=== PATIENT | male | born 1945 | race Hispanic/Latino ===

== ENCOUNTER 2017-08-29 15:56 | Inpatient (IN) | payer OTHER, MEDICARE ==
[~2017-08-29] VITALS: Ht 162.6 cm; Wt 73.1 kg
[2017-08-29] VITALS (10 sets, daily range): BP systolic 109–133; BP diastolic 51–83
[2017-08-29] MEDS ORDERED: METOPROLOL TARTRATE 1 MG/ML 5ML VIAL IV ONE (16:05)
[2017-08-29] MEDS ORDERED: FUROSEMIDE 10 MG/ML 2ML VIAL ONE (16:10)
[2017-08-29] MEDS ORDERED: MORPHINE SULFATE 4 MG/1ML SYG ONE (16:10)
[2017-08-29] MEDS ORDERED: ONDANSETRON HCL MDV 20ML 2 MG/ML VIAL ONE (16:11)
[2017-08-29 16:12] LABS: BASOPHILS % (AUTO) 0.7 % (0.0-5.0); EOSINOPHILS % (AUTO) 1.4 % (0.0-8.0); HEMATOCRIT 38.2 % (42-54); LYMPHOCYTES % (AUTO) 15.3 % (21.0-51.0); MEAN CORPUSCULAR HEMOGLOBIN 29.3 pg (27.0-33.0); MEAN CORPUSCULAR HGB CONC 34.3 g/dL (32.0-36.0); MEAN CORPUSCULAR VOLUME 85.6 fL (79-99); MONOCYTES % (AUTO) 7.1 % (3.0-13.0); NEUTROPHILS % (AUTO) 75.5 % (40.0-77.0); PLATELET COUNT (AUTO) 257 K/uL (130-400); RED BLOOD CELL COUNT(AUTO) 4.47 MIL/uL (4.50-6.20); RED CELL DISTRIBUTION WIDTH 13.9 % (11.0-15.5); WHITE BLOOD COUNT (AUTO) 12.3 K/uL (4.8-10.8)
[2017-08-29] MEDS ORDERED: NITROGLYCERIN 50 MG/D5% WATER 1 BOT ONE (16:14)
[2017-08-29 16:22] LABS: CREATININE 1.2 mg/dL (0.5-1.5); POTASSIUM 4.1 mmol/L (3.5-5.1)
[2017-08-29 16:23] LABS: INR 1.01 (0.85-1.15); PARTIAL THROMBOPLASTIN TIME 27.5 SEC (26.3-35.5); PROTHROMBIN TIME 10.6 SEC (9.6-11.6)
[2017-08-29 16:35] LABS: ALBUMIN 2.8 g/dL (3.5-5.0); B-TYPE NATRIURETIC PEPTIDE 3200 pg/mL (0-100); CREATINE KINASE MB 33.1 ng/mL (0.5-3.6); TOTAL PROTEIN, SERUM 7.1 g/dL (6.0-8.3)
[2017-08-29 16:44] LABS: APPEARANCE,URINE Clear (CLEAR); BILIRUBIN,URINE Negative (NEGATIVE); COLOR,URINE Yellow (YELLOW); GLUCOSE, URINE (UA) >=1000 mg/dL (NEGATIVE); KETONES,URINE 15 mg/dL (NEGATIVE); LEUKOCYTE ESTERASE ,URINE Negative (NEGATIVE); NITRATE,URINE Negative (NEGATIVE); OCCULT BLOOD,URINE Negative (NEGATIVE); PROTEIN,URINE Negative (NEGATIVE)
[2017-08-29 16:52] LABS: BACTERIA,URINE None Seen /HPF (None Seen); RBC,URINE None Seen /HPF (0-1); SQUAMOUS EPITHELIAL CELL,UR 0-2 /HPF (0-2); WBC,URINE None Seen /HPF (0-1)
[2017-08-29] MEDS ORDERED: CEFTRIAXONE SODIUM 1 GM ONE (16:53)
[2017-08-29] MEDS ORDERED: AZITHROMYCIN 250 MG TABLET PO ONE ×2 (16:54→17:07)
[2017-08-29] MEDS ORDERED: SODIUM CHLORIDE 0.9% 50 ML IV ONE (16:54)
[2017-08-29] MEDS ORDERED: INSULIN HUMULIN R 100 UNIT/ML 3ML ONE (17:12)
[2017-08-29] MEDS: PANTOPRAZOLE SODIUM 40 MG TABLET.DR PO SCH (17:15)
[2017-08-29] MEDS: LISINOPRIL 5 MG TABLET PO SCH (17:15)
[2017-08-29] MEDS ORDERED: TICAGRELOR 90 MG TABLET PO SCH (17:15)
[2017-08-29] MEDS ORDERED: ENOXAPARIN SODIUM 40 MG/0.4 ML SYRINGE SQ SCH (17:26)
[2017-08-29] MEDS ORDERED: ONDANSETRON HCL 4 MG/2 ML VIAL IVP PRN (17:30)
[2017-08-29] MEDS ORDERED: ACETAMINOPHEN 325 MG TAB PO PRN ×2 (17:30)
[2017-08-29] MEDS ORDERED: CLONIDINE HCL 0.1 MG TABLET PO PRN (17:30)
[2017-08-29] MEDS ORDERED: LACTULOSE 20 GM/30 ML UDCUP PO PRN (17:30)
[2017-08-29] MEDS ORDERED: PANTOPRAZOLE SODIUM 40 MG TABLET.DR PO ONE (17:41)
[2017-08-29] MEDS ORDERED: LISINOPRIL 5 MG TABLET ONE (17:42)
[2017-08-29] MEDS ORDERED: TICAGRELOR 90 MG TABLET ONE (17:43)
[2017-08-29] MEDS: ENOXAPARIN SODIUM 80 MG/0.8 ML SQ SCH (21:55)
[2017-08-30] VITALS (26 sets, daily range): BP systolic 90–152; BP diastolic 42–100
[2017-08-30] MEDS: FUROSEMIDE 10 MG/ML 2ML VIAL IV SCH ×3 (00:06→16:19)
[2017-08-30] MEDS ORDERED: CEFTRIAXONE 1GM/D5W 50ML 50 ML IV SCH (00:15)
[2017-08-30] MEDS ORDERED: AZITHROMYCIN 500MG+NS 250ML 250 ML IV SCH (00:15)
[2017-08-30] MEDS ORDERED: CEFTRIAXONE SODIUM 1 GM IVP SCH (01:00)
[2017-08-30 01:08] LABS: CREATINE KINASE MB 28.4 ng/mL (0.5-3.6)
[2017-08-30 01:11] LABS: TROPONIN I 27.22 ng/mL (0.00-0.06)
[2017-08-30 06:24] LABS: HEMOGLOBIN A1C 10.2 % (4.0-6.0)
[2017-08-30 06:42] LABS: CREATINE KINASE MB 21.9 ng/mL (0.5-3.6); CREATININE 1.2 mg/dL (0.5-1.5); POTASSIUM 4.1 mmol/L (3.5-5.1)
[2017-08-30 06:44] LABS: TROPONIN I 19.59 ng/mL (0.00-0.06)
[2017-08-30] MEDS: TICAGRELOR 90 MG TABLET PO SCH ×2 (08:23→20:13)
[2017-08-30] MEDS: ASPIRIN 81MG TAB.CHEW PO SCH (08:24)
[2017-08-30] MEDS: LISINOPRIL 5 MG TABLET PO SCH (08:24)
[2017-08-30] MEDS: PANTOPRAZOLE SODIUM 40 MG TABLET.DR PO SCH (08:24)
[2017-08-30] MEDS: ENOXAPARIN SODIUM 80 MG/0.8 ML SQ SCH ×2 (08:30→20:14)
[2017-08-30] MEDS ORDERED: GLUCAGON 1MG KIT 1 MG ML IM PRN (15:45)
[2017-08-30] MEDS ORDERED: DEXTROSE 50%-WATER 50 ML DISP.SYRIN IV PRN (15:45)
[2017-08-30] MEDS: CEFTRIAXONE SODIUM 1 GM IVP SCH (16:19)
[2017-08-30] MEDS: INSULIN HUMULIN R 100 UNIT/ML 3ML SQ SCH ×2 (16:25→20:18)
[2017-08-31] VITALS (19 sets, daily range): BP systolic 87–125; BP diastolic 32–88
[2017-08-31] MEDS: FUROSEMIDE 10 MG/ML 2ML VIAL IV SCH ×4 (00:25→23:42)
[2017-08-31 03:44] LABS: BASOPHILS % (AUTO) 0.6 % (0.0-5.0); EOSINOPHILS % (AUTO) 2.4 % (0.0-8.0); LYMPHOCYTES % (AUTO) 9.1 % (21.0-51.0); MEAN CORPUSCULAR HEMOGLOBIN 28.9 pg (27.0-33.0); MEAN CORPUSCULAR HGB CONC 33.7 g/dL (32.0-36.0); MEAN CORPUSCULAR VOLUME 85.6 fL (79-99); MONOCYTES % (AUTO) 5.5 % (3.0-13.0); NEUTROPHILS % (AUTO) 82.4 % (40.0-77.0); PLATELET COUNT (AUTO) 226 K/uL (130-400); RED BLOOD CELL COUNT(AUTO) 4.67 MIL/uL (4.50-6.20); RED CELL DISTRIBUTION WIDTH 14.1 % (11.0-15.5); WHITE BLOOD COUNT (AUTO) 13.5 K/uL (4.8-10.8)
[2017-08-31 03:58] LABS: INR 1.07 (0.85-1.15); PARTIAL THROMBOPLASTIN TIME 32.3 SEC (26.3-35.5); PROTHROMBIN TIME 11.2 SEC (9.6-11.6)
[2017-08-31 04:11] LABS: POTASSIUM 3.8 mmol/L (3.5-5.1)
[2017-08-31] MEDS: INSULIN HUMULIN R 100 UNIT/ML 3ML SQ SCH ×4 (05:47→21:23)
[2017-08-31] MEDS: TICAGRELOR 90 MG TABLET PO SCH (08:20)
[2017-08-31] MEDS: ATORVASTATIN CALCIUM 40 MG TABLET PO SCH (08:20)
[2017-08-31] MEDS: ASPIRIN 81MG TAB.CHEW PO SCH (08:20)
[2017-08-31] MEDS: LISINOPRIL 5 MG TABLET PO SCH (08:21)
[2017-08-31] MEDS: PANTOPRAZOLE SODIUM 40 MG TABLET.DR PO SCH (08:22)
[2017-08-31] MEDS: CEFTRIAXONE SODIUM 1 GM IVP SCH (16:15)
[2017-08-31] MEDS: AZITHROMYCIN 500MG+NS 250ML 250 ML IV SCH (16:16)
[2017-08-31] MEDS: CARVEDILOL 3.125 MG TABLET PO SCH (20:09)
[2017-08-31] MEDS ORDERED: POTASSIUM CHLORIDE 20 MEQ ERTAB PO ONE (23:58)
[2017-09-01] VITALS (33 sets, daily range): BP systolic 90–133; BP diastolic 56–91
[2017-09-01] MEDS ORDERED: POTASSIUM CHLORIDE 10% ELIXIR 20 MEQ/15 ML UDCUP PO PRN
[2017-09-01] MEDS ORDERED: LIDOCAINE HCL-MPF 1% 2ML VIAL IVP PRN
[2017-09-01] MEDS ORDERED: POTASSIUM CHLORIDE 20MEQ/100ML 100 ML IV PRN
[2017-09-01] MEDS: POTASSIUM CHLORIDE 20 MEQ ERTAB PO PRN ×3 (01:56→16:17)
[2017-09-01 04:27] LABS: INR 1.03 (0.85-1.15); PARTIAL THROMBOPLASTIN TIME 27.9 SEC (26.3-35.5); PROTHROMBIN TIME 10.8 SEC (9.6-11.6)
[2017-09-01 04:28] LABS: HEMATOCRIT 40.2 % (42-54); MEAN CORPUSCULAR HEMOGLOBIN 30.4 pg (27.0-33.0); MEAN CORPUSCULAR HGB CONC 34.8 g/dL (32.0-36.0); MEAN CORPUSCULAR VOLUME 87.3 fL (79-99); PLATELET COUNT (AUTO) 299 K/uL (130-400); RED BLOOD CELL COUNT(AUTO) 4.61 MIL/uL (4.50-6.20); RED CELL DISTRIBUTION WIDTH 13.8 % (11.0-15.5); WHITE BLOOD COUNT (AUTO) 13.3 K/uL (4.8-10.8)
[2017-09-01 04:37] LABS: CREATININE 1.2 mg/dL (0.5-1.5); MAGNESIUM 2.3 mg/dL (1.80-2.40); POTASSIUM 3.8 mmol/L (3.5-5.1)
[2017-09-01 04:47] LABS: B-TYPE NATRIURETIC PEPTIDE 2130 pg/mL (0-100)
[2017-09-01] MEDS: INSULIN HUMULIN R 100 UNIT/ML 3ML SQ SCH ×4 (06:27→20:59)
[2017-09-01] MEDS: FUROSEMIDE 10 MG/ML 2ML VIAL IV SCH ×3 (08:29→23:57)
[2017-09-01] MEDS: ASPIRIN 81MG TAB.CHEW PO SCH (08:29)
[2017-09-01] MEDS: ATORVASTATIN CALCIUM 40 MG TABLET PO SCH (08:30)
[2017-09-01] MEDS: CARVEDILOL 3.125 MG TABLET PO SCH ×2 (08:30→20:56)
[2017-09-01] MEDS: PANTOPRAZOLE SODIUM 40 MG TABLET.DR PO SCH (08:30)
[2017-09-01] MEDS: LISINOPRIL 5 MG TABLET PO SCH (10:02)
[2017-09-01] MEDS: MILRINONE-D5W 20 MG/100 ML 100 ML IV SCH ×2 (10:20→22:36)
[2017-09-01 15:46] LABS: APPEARANCE BODY FLUID CLEAR (CLEAR); COLOR,BODY FLUID LT YELLOW (LT YELLOW); SPECIMENTYPE,BODY FLUID RT THORACENTESIS; TOTAL VOLUME,BODY FLUID 700 mL
[2017-09-01 15:57] LABS: BODY FLUID RBC 600 /cu. mm.; BODY FLUID WBC 110 /cu. mm.
[2017-09-01 16:11] LABS: GLUCOSE,BODY FLUID 294 mg/dL (1-40)
[2017-09-01] MEDS: AZITHROMYCIN 500MG+NS 250ML 250 ML IV SCH (16:14)
[2017-09-01] MEDS: CEFTRIAXONE SODIUM 1 GM IVP SCH (16:14)
[2017-09-01 16:16] LABS: BF LYMPHOCYTE 57 %; BF MESOTHELIAL 3 %; BF MONOCYTE 20 %
[2017-09-01] MEDS ORDERED: TICAGRELOR 90 MG TABLET PO SCH (21:00)
[2017-09-02] VITALS (24 sets, daily range): BP systolic 75–138; BP diastolic 43–80
[2017-09-02 04:49] LABS: POTASSIUM 3.4 mmol/L (3.5-5.1)
[2017-09-02] MEDS: POTASSIUM CHLORIDE 20 MEQ ERTAB PO PRN ×2 (06:11→08:16)
[2017-09-02] MEDS: INSULIN HUMULIN R 100 UNIT/ML 3ML SQ SCH ×4 (06:21→21:00)
[2017-09-02] MEDS: FUROSEMIDE 10 MG/ML 2ML VIAL IV SCH (08:13)
[2017-09-02] MEDS: ASPIRIN 81MG TAB.CHEW PO SCH (08:13)
[2017-09-02] MEDS: ATORVASTATIN CALCIUM 40 MG TABLET PO SCH (08:13)
[2017-09-02] MEDS: PANTOPRAZOLE SODIUM 40 MG TABLET.DR PO SCH (08:13)
[2017-09-02] MEDS: LISINOPRIL 5 MG TABLET PO SCH (09:31)
[2017-09-02] MEDS: CARVEDILOL 3.125 MG TABLET PO SCH ×2 (09:31→21:31)
[2017-09-02] MEDS: TICAGRELOR 90 MG TABLET PO SCH ×3 (12:20→21:29)
[2017-09-02] MEDS: AZITHROMYCIN 500MG+NS 250ML 250 ML IV SCH (16:29)
[2017-09-02] MEDS: CEFTRIAXONE SODIUM 1 GM IVP SCH (16:29)
[2017-09-02] MEDS ORDERED: BLUE500T PO (17:45)
[2017-09-02] MEDS ORDERED: GANODERMA (17:51)
[2017-09-02] MEDS: ENOXAPARIN SODIUM 30 MG/0.3 ML SQ SCH (18:41)
[2017-09-02] MEDS ORDERED: GUAIFENESIN SUGAR-FREE 100 MG/5 ML UDCUP ONE (21:54)
[2017-09-02] MEDS: GUAIFENESIN SUGAR-FREE 100 MG/5 ML UDCUP PO SCH (22:00)
[2017-09-03] VITALS (35 sets, daily range): BP systolic 72–123; BP diastolic 44–82
[2017-09-03 04:06] LABS: HEMATOCRIT 40.4 % (42-54); MEAN CORPUSCULAR HEMOGLOBIN 29.9 pg (27.0-33.0); MEAN CORPUSCULAR HGB CONC 35.3 g/dL (32.0-36.0); MEAN CORPUSCULAR VOLUME 84.7 fL (79-99); NUCLEATED RED BLOOD CELLS 0.1 % (0.0-0.19); PLATELET COUNT (AUTO) 238 K/uL (130-400); RED BLOOD CELL COUNT(AUTO) 4.77 MIL/uL (4.50-6.20); RED CELL DISTRIBUTION WIDTH 14.1 % (11.0-15.5); WHITE BLOOD COUNT (AUTO) 8.6 K/uL (4.8-10.8)
[2017-09-03 04:18] LABS: POTASSIUM 3.8 mmol/L (3.5-5.1)
[2017-09-03 04:33] LABS: INR 1.07 (0.85-1.15); PARTIAL THROMBOPLASTIN TIME 30.1 SEC (26.3-35.5); PROTHROMBIN TIME 11.2 SEC (9.6-11.6)
[2017-09-03 04:55] LABS: B-TYPE NATRIURETIC PEPTIDE 2540 pg/mL (0-100)
[2017-09-03] MEDS: INSULIN HUMULIN R 100 UNIT/ML 3ML SQ SCH ×4 (07:30→21:22)
[2017-09-03] MEDS ORDERED: HEPARIN SODIUM 1000UNIT/ML 10ML VIAL ONE (07:44)
[2017-09-03] MEDS ORDERED: LIDOCAINE HCL 1% 20 ML VIAL ONE (07:44)
[2017-09-03] MEDS ORDERED: ISOVUE-370 50ML VIAL IV ONE (07:44)
[2017-09-03] MEDS ORDERED: IOPAMIDOL-370 100 ML VIAL IV ONE (07:44)
[2017-09-03] MEDS: ENOXAPARIN SODIUM 30 MG/0.3 ML SQ SCH (08:18)
[2017-09-03] MEDS ORDERED: FUROSEMIDE 10 MG/ML 4ML VIAL ONE (08:44)
[2017-09-03] MEDS: TICAGRELOR 90 MG TABLET PO SCH ×2 (09:00→21:38)
[2017-09-03] MEDS ORDERED: FUROSEMIDE 10 MG/ML 2ML VIAL IV SCH (09:00)
[2017-09-03] MEDS: LISINOPRIL 5 MG TABLET PO SCH (09:00)
[2017-09-03] MEDS ORDERED: GLUCAGON 1MG KIT 1 MG ML IM PRN (09:15)
[2017-09-03] MEDS ORDERED: DEXTROSE 50%-WATER 50 ML DISP.SYRIN IV PRN (09:15)
[2017-09-03] MEDS: CARVEDILOL 3.125 MG TABLET PO SCH ×3 (11:25→22:38)
[2017-09-03] MEDS: PANTOPRAZOLE SODIUM 40 MG TABLET.DR PO SCH (11:25)
[2017-09-03] MEDS: ASPIRIN 81MG TAB.CHEW PO SCH (11:25)
[2017-09-03] MEDS: ATORVASTATIN CALCIUM 40 MG TABLET PO SCH (11:32)
[2017-09-03] MEDS: AZITHROMYCIN 500MG+NS 250ML 250 ML IV SCH (16:28)
[2017-09-03] MEDS: CEFTRIAXONE SODIUM 1 GM IVP SCH (16:29)
[2017-09-03] MEDS: FUROSEMIDE 10 MG/ML 2ML VIAL IV SCH ×2 (21:00→22:38)
[2017-09-03] MEDS: LOSARTAN 50 MG TABLET PO SCH (21:43)
[2017-09-03] MEDS: GUAIFENESIN SUGAR-FREE 100 MG/5 ML UDCUP PO SCH (22:00)
[2017-09-04] VITALS (27 sets, daily range): BP systolic 71–126; BP diastolic 49–79
[2017-09-04 03:57] LABS: BASOPHILS % (AUTO) 0.5 % (0.0-5.0); EOSINOPHILS % (AUTO) 6.7 % (0.0-8.0); LYMPHOCYTES % (AUTO) 14.7 % (21.0-51.0); MEAN CORPUSCULAR HEMOGLOBIN 29.5 pg (27.0-33.0); MEAN CORPUSCULAR HGB CONC 34.8 g/dL (32.0-36.0); MEAN CORPUSCULAR VOLUME 84.7 fL (79-99); MONOCYTES % (AUTO) 10.4 % (3.0-13.0); NEUTROPHILS % (AUTO) 67.7 % (40.0-77.0); NUCLEATED RED BLOOD CELLS 0.1 % (0.0-0.19); PLATELET COUNT (AUTO) 256 K/uL (130-400); RED BLOOD CELL COUNT(AUTO) 4.95 MIL/uL (4.50-6.20); RED CELL DISTRIBUTION WIDTH 14.4 % (11.0-15.5); WHITE BLOOD COUNT (AUTO) 10.1 K/uL (4.8-10.8)
[2017-09-04 04:11] LABS: CREATININE 1.1 mg/dL (0.5-1.5); POTASSIUM 3.7 mmol/L (3.5-5.1)
[2017-09-04 04:19] LABS: B-TYPE NATRIURETIC PEPTIDE 2690 pg/mL (0-100)
[2017-09-04] MEDS: INSULIN HUMULIN R 100 UNIT/ML 3ML SQ SCH ×4 (06:34→20:44)
[2017-09-04] MEDS: MILRINONE-D5W 20 MG/100 ML 100 ML IV SCH ×2 (06:53→19:31)
[2017-09-04] MEDS: ENOXAPARIN SODIUM 30 MG/0.3 ML SQ SCH (08:36)
[2017-09-04] MEDS: PANTOPRAZOLE SODIUM 40 MG TABLET.DR PO SCH (08:37)
[2017-09-04] MEDS: ISOSORBIDE MONO 30MG TAB SR PO SCH (08:37)
[2017-09-04] MEDS: CARVEDILOL 3.125 MG TABLET PO SCH ×3 (08:37→22:35)
[2017-09-04] MEDS: ATORVASTATIN CALCIUM 40 MG TABLET PO SCH (08:37)
[2017-09-04] MEDS ORDERED: FUROSEMIDE 10 MG/ML 4ML VIAL IV SCH (09:00)
[2017-09-04] MEDS: ASPIRIN 81MG TAB.CHEW PO SCH (09:00)
[2017-09-04] MEDS: POTASSIUM CHLORIDE 20 MEQ ERTAB PO PRN ×2 (11:24→15:28)
[2017-09-04] MEDS: CEFTRIAXONE SODIUM 1 GM IVP SCH (16:59)
[2017-09-04] MEDS: AZITHROMYCIN 500MG+NS 250ML 250 ML IV SCH (16:59)
[2017-09-04] MEDS: FUROSEMIDE 10 MG/ML 4ML VIAL IV SCH (19:33)
[2017-09-04] MEDS: GUAIFENESIN SUGAR-FREE 100 MG/5 ML UDCUP PO SCH (20:35)
[2017-09-04] MEDS: LOSARTAN 50 MG TABLET PO SCH (21:31)
[2017-09-05] VITALS (25 sets, daily range): BP systolic 87–144; BP diastolic 45–74
[2017-09-05 03:57] LABS: BASOPHILS % (AUTO) 0.4 % (0.0-5.0); EOSINOPHILS % (AUTO) 6.1 % (0.0-8.0); HEMATOCRIT 37.9 % (42-54); LYMPHOCYTES % (AUTO) 15.7 % (21.0-51.0); MEAN CORPUSCULAR HEMOGLOBIN 29.2 pg (27.0-33.0); MEAN CORPUSCULAR HGB CONC 34.8 g/dL (32.0-36.0); MEAN CORPUSCULAR VOLUME 83.9 fL (79-99); MONOCYTES % (AUTO) 9.7 % (3.0-13.0); NEUTROPHILS % (AUTO) 68.1 % (40.0-77.0); PLATELET COUNT (AUTO) 200 K/uL (130-400); RED BLOOD CELL COUNT(AUTO) 4.52 MIL/uL (4.50-6.20); WHITE BLOOD COUNT (AUTO) 8.7 K/uL (4.8-10.8)
[2017-09-05 04:28] LABS: B-TYPE NATRIURETIC PEPTIDE 1810 pg/mL (0-100)
[2017-09-05 04:30] LABS: POTASSIUM 3.4 mmol/L (3.5-5.1)
[2017-09-05] MEDS: POTASSIUM CHLORIDE 20 MEQ ERTAB PO PRN (06:21)
[2017-09-05] MEDS: FUROSEMIDE 10 MG/ML 4ML VIAL IV SCH ×2 (06:21→17:38)
[2017-09-05] MEDS: INSULIN HUMULIN R 100 UNIT/ML 3ML SQ SCH ×4 (06:28→21:17)
[2017-09-05] MEDS: ISOSORBIDE MONO 30MG TAB SR PO SCH (09:34)
[2017-09-05] MEDS: CARVEDILOL 3.125 MG TABLET PO SCH ×2 (09:35→21:18)
[2017-09-05] MEDS: ATORVASTATIN CALCIUM 40 MG TABLET PO SCH (09:35)
[2017-09-05] MEDS: ASPIRIN 81MG TAB.CHEW PO SCH (09:36)
[2017-09-05] MEDS: PANTOPRAZOLE SODIUM 40 MG TABLET.DR PO SCH (09:36)
[2017-09-05] MEDS: ENOXAPARIN SODIUM 30 MG/0.3 ML SQ SCH (09:39)
[2017-09-05] MEDS ORDERED: CYANOCOBALAMIN (VITAMIN B-12) 1,000 MCG TABLET PO SCH (15:00)
[2017-09-05] MEDS ORDERED: FOLIC ACID 1 MG TABLET PO SCH (15:00)
[2017-09-05] MEDS: MILRINONE-D5W 20 MG/100 ML 100 ML IV SCH (15:27)
[2017-09-05] MEDS: CEFTRIAXONE SODIUM 1 GM IVP SCH (17:20)
[2017-09-05] MEDS: AZITHROMYCIN 500MG+NS 250ML 250 ML IV SCH (17:20)
[2017-09-05] MEDS: LOSARTAN 50 MG TABLET PO SCH (21:19)
[2017-09-05] MEDS: IRON POLYSACCHARIDES COMPLEX 150 MG CAPSULE PO SCH (21:19)
[2017-09-05] MEDS: GUAIFENESIN SUGAR-FREE 100 MG/5 ML UDCUP PO SCH (22:00)
[2017-09-06] VITALS (20 sets, daily range): BP systolic 88–115; BP diastolic 42–68
[2017-09-06 03:55] LABS: CREATININE 1.1 mg/dL (0.5-1.5); POTASSIUM 3.4 mmol/L (3.5-5.1)
[2017-09-06] MEDS: FUROSEMIDE 10 MG/ML 4ML VIAL IV SCH (06:05)
[2017-09-06] MEDS: POTASSIUM CHLORIDE 20 MEQ ERTAB PO PRN ×2 (06:05→08:56)
[2017-09-06] MEDS: INSULIN HUMULIN R 100 UNIT/ML 3ML SQ SCH ×4 (06:40→21:00)
[2017-09-06] MEDS: FUROSEMIDE 40 MG TABLET PO SCH ×2 (08:47→16:57)
[2017-09-06] MEDS: ASPIRIN 81MG TAB.CHEW PO SCH (08:47)
[2017-09-06] MEDS: ENOXAPARIN SODIUM 30 MG/0.3 ML SQ SCH (08:47)
[2017-09-06] MEDS: PANTOPRAZOLE SODIUM 40 MG TABLET.DR PO SCH (08:48)
[2017-09-06] MEDS: IRON POLYSACCHARIDES COMPLEX 150 MG CAPSULE PO SCH ×2 (08:48→20:48)
[2017-09-06] MEDS: CARVEDILOL 3.125 MG TABLET PO SCH ×2 (08:48→20:49)
[2017-09-06] MEDS: MILRINONE-D5W 20 MG/100 ML 100 ML IV SCH (09:18)
[2017-09-06] MEDS: ISOSORBIDE MONO 30MG TAB SR PO SCH (09:45)
[2017-09-06] MEDS: ATORVASTATIN CALCIUM 40 MG TABLET PO SCH (09:45)
[2017-09-06] MEDS: CEFUROXIME SODIUM 1.5 GM VIAL IVP SCH (10:00)
[2017-09-06 10:42] LABS: BASOPHILS % (AUTO) 0.4 % (0.0-5.0); HEMATOCRIT 36.6 % (42-54); LYMPHOCYTES % (AUTO) 18.9 % (21.0-51.0); MEAN CORPUSCULAR HEMOGLOBIN 29.2 pg (27.0-33.0); MEAN CORPUSCULAR HGB CONC 34.6 g/dL (32.0-36.0); MEAN CORPUSCULAR VOLUME 84.4 fL (79-99); MONOCYTES % (AUTO) 8.3 % (3.0-13.0); NEUTROPHILS % (AUTO) 68.4 % (40.0-77.0); PLATELET COUNT (AUTO) 194 K/uL (130-400); RED BLOOD CELL COUNT(AUTO) 4.33 MIL/uL (4.50-6.20); RED CELL DISTRIBUTION WIDTH 14.1 % (11.0-15.5); WHITE BLOOD COUNT (AUTO) 7.9 K/uL (4.8-10.8)
[2017-09-06] MEDS: AZITHROMYCIN 500MG+NS 250ML 250 ML IV SCH (15:58)
[2017-09-06] MEDS: CEFTRIAXONE SODIUM 1 GM IVP SCH (15:58)
[2017-09-06] MEDS: GUAIFENESIN SUGAR-FREE 100 MG/5 ML UDCUP PO SCH (19:34)
[2017-09-06] MEDS: LOSARTAN 50 MG TABLET PO SCH (20:49)
[2017-09-07] VITALS (22 sets, daily range): BP systolic 86–164; BP diastolic 42–78
[2017-09-07] MEDS: MILRINONE-D5W 20 MG/100 ML 100 ML IV SCH (02:34)
[2017-09-07 03:52] LABS: MEAN CORPUSCULAR HEMOGLOBIN 30.4 pg (27.0-33.0); MEAN CORPUSCULAR HGB CONC 36.3 g/dL (32.0-36.0); MEAN CORPUSCULAR VOLUME 83.7 fL (79-99); PLATELET COUNT (AUTO) 213 K/uL (130-400); RED BLOOD CELL COUNT(AUTO) 4.06 MIL/uL (4.50-6.20); RED CELL DISTRIBUTION WIDTH 13.8 % (11.0-15.5); WHITE BLOOD COUNT (AUTO) 8.2 K/uL (4.8-10.8)
[2017-09-07 04:00] LABS: INR 1.02 (0.85-1.15); PARTIAL THROMBOPLASTIN TIME 27.8 SEC (26.3-35.5); PROTHROMBIN TIME 10.7 SEC (9.6-11.6)
[2017-09-07 04:18] LABS: CREATININE 0.9 mg/dL (0.5-1.5); POTASSIUM 3.6 mmol/L (3.5-5.1)
[2017-09-07] MEDS: INSULIN HUMULIN R 100 UNIT/ML 3ML SQ SCH (06:38)
[2017-09-07] MEDS: ATORVASTATIN CALCIUM 40 MG TABLET PO SCH (09:00)
[2017-09-07] MEDS ORDERED: LIDOCAINE PF 2% 5ML ABBOJECT ONE (09:08)
[2017-09-07] MEDS ORDERED: ESMOLOL HCL 10 MG/ML 10 ML VIAL ONE (09:08)
[2017-09-07] MEDS ORDERED: NOREPINEPHRINE BITARTRATE 1 MG/1 ML ML IV ONE (09:08)
[2017-09-07] MEDS ORDERED: NEOSTIGMINE 5MG/5ML SYR IV ONE (09:08)
[2017-09-07] MEDS ORDERED: EPINEPHRINE 1 MG/ML AMPULE ONE (09:08)
[2017-09-07] MEDS ORDERED: MILRINONE-D5W 20 MG/100 ML 100 ML IV ONE (09:08)
[2017-09-07] MEDS ORDERED: GLYCOPYRROLATE 0.2 MG/ML 5 ML VIAL ONE (09:08)
[2017-09-07] MEDS ORDERED: PROTAMINE SULFATE 10 MG/ML 25ML VIAL IV ONE (09:08)
[2017-09-07] MEDS ORDERED: HEPARIN SODIUM 1000UNIT/ML 10ML VIAL ONE ×2 (09:08→09:15)
[2017-09-07] MEDS ORDERED: AMINOCAPROIC ACID 250 MG/ML 20 ML VIAL IV ONE (09:08)
[2017-09-07] MEDS ORDERED: FENTANYL CITRATE PF 50 MCG/1 ML 20ML VIAL IJ ONE (09:08)
[2017-09-07] MEDS ORDERED: ROCURONIUM BROMIDE 10MG/1ML 5ML VL ONE (09:08)
[2017-09-07] MEDS ORDERED: MIDAZOLAM HCL 1 MG/ML 5ML VIAL ONE (09:09)
[2017-09-07] MEDS ORDERED: PROPOFOL 10 MG/ML 20ML VIAL IV ONE (09:09)
[2017-09-07] MEDS ORDERED: THROMBIN-JMI 5000 UNIT/VIAL TP ONE (09:15)
[2017-09-07] MEDS: CEFUROXIME SODIUM 1.5 GM VIAL IVP SCH ×2 (09:31→21:04)
[2017-09-07 09:40] LABS: ABG BASE EXCESS -1.2 mmol/L (-2.0-3.0); ABG HCO3 24.1 mmol/L (21.0-28.0); ABG PCO2 42 mmHg (35-48)
[2017-09-07] MEDS ORDERED: CEFUROXIME 1.5GM+NS 100ML 100 ML IV SCH ×2 (09:45→20:15)
[2017-09-07] MEDS ORDERED: BACITRACIN 50,000 UNIT VIAL ONE (09:48)
[2017-09-07] MEDS ORDERED: OCTYL 2-CYANOACRYLATE 1 EACH TP ONE (09:48)
[2017-09-07] MEDS ORDERED: PAPAVERINE HCL 30 MG/ML 2ML VIAL ONE (09:48)
[2017-09-07 10:47] LABS: ABG BASE EXCESS -2.9 mmol/L (-2.0-3.0); ABG HCO3 21.8 mmol/L (21.0-28.0); ABG OXYGEN SATURATION 98.9 % (95.0-99.0); ABG PCO2 37 mmHg (35-48)
[2017-09-07] MEDS ORDERED: SODIUM BICARB 50MEQ 50ML VIAL ONE (11:22)
[2017-09-07] MEDS ORDERED: MAGNESIUM SULFATE 1 GM/2 ML VIAL ONE (11:33)
[2017-09-07] MEDS ORDERED: SODIUM CHLORIDE 0.9% 1000ML 1,000 ML IV ONE (11:40)
[2017-09-07 11:41] LABS: ABG BASE EXCESS 0.5 mmol/L (-2.0-3.0); ABG HCO3 25.4 mmol/L (21.0-28.0); ABG OXYGEN SATURATION 98.7 % (95.0-99.0); ABG PCO2 42 mmHg (35-48)
[2017-09-07 12:09] LABS: ABG BASE EXCESS -3.1 mmol/L (-2.0-3.0); ABG HCO3 22.8 mmol/L (21.0-28.0); ABG OXYGEN SATURATION 96.7 % (95.0-99.0); ABG PCO2 44 mmHg (35-48)
[2017-09-07] MEDS ORDERED: EPHEDRINE SULFATE 50 MG/ML AMPULE ONE (12:10)
[2017-09-07] MEDS ORDERED: ALBUMIN (HUMAN) 5% 250 ML IV PRN (12:15)
[2017-09-07] MEDS ORDERED: MAGNESIUM 2GM PREMIX 50ML 50 ML IV PRN (12:15)
[2017-09-07] MEDS ORDERED: PROPOFOL 1000 MG/100 ML 100 ML IV PRN (12:15)
[2017-09-07] MEDS ORDERED: SODIUM BICARB 8.4% 50ML SYRINGE IV PRN (12:15)
[2017-09-07] MEDS ORDERED: CALCIUM GLUCONATE 1 GM in SODIUM CHLORIDE 0.9% 50 ML IV PRN (12:15)
[2017-09-07] MEDS ORDERED: EPINEPHRINE 2 MG in SODIUM CHLORIDE 0.9% 250 ML IV PRN (12:15)
[2017-09-07] MEDS ORDERED: DEXTROSE 50%-WATER 50 ML DISP.SYRIN IV PRN (12:15)
[2017-09-07] MEDS ORDERED: ACETAMINOPHEN 650 MG SUPPOSITORY RC PRN (12:15)
[2017-09-07] MEDS ORDERED: ONDANSETRON HCL 4 MG/2 ML VIAL IV PRN (12:15)
[2017-09-07] MEDS ORDERED: MORPHINE SULFATE 4 MG/1ML SYG IV PRN (12:15)
[2017-09-07] MEDS ORDERED: SODIUM CHLORIDE 0.9% 1000ML 1,000 ML IV SCH (12:15)
[2017-09-07] MEDS ORDERED: SODIUM CHLORIDE 0.9% 250 ML IV PRN (12:15)
[2017-09-07] MEDS ORDERED: ACETAMINOPHEN 325 MG TAB PO PRN (12:15)
[2017-09-07] MEDS ORDERED: INSULIN REGULAR, HUMAN 3ML 100 UNIT in SODIUM CHLORIDE 0.9% 99 ML IV SCH ×2 (12:15)
[2017-09-07] MEDS ORDERED: MORPHINE SULFATE 2 MG/ML 1ML SYG IV PRN (12:15)
[2017-09-07] MEDS ORDERED: GLUCAGON 1MG KIT 1 MG ML IM PRN (12:15)
[2017-09-07] MEDS ORDERED: POTASSIUM PHOS 15 mMOL+NS250ML 250 ML IV PRN (12:15)
[2017-09-07] MEDS ORDERED: SODIUM CHLORIDE 0.9% 10 ML VIAL IVP PRN (12:15)
[2017-09-07] MEDS ORDERED: NICARDIPINE HCL 100 MG in SODIUM CHLORIDE 0.9% 100 ML IV PRN (12:15)
[2017-09-07] MEDS ORDERED: NITROGLYCERIN 50 MG/D5% WATER 250 BOT IV SCH (12:15)
[2017-09-07] MEDS ORDERED: AMINOCAPROIC ACID 15,000 MG in SODIUM CHLORIDE 0.9% 250 ML IV SCH (12:15)
[2017-09-07] MEDS ORDERED: DESMOPRESSIN ACETATE 4 MCG/ML IJ ONE (12:23)
[2017-09-07 13:27] LABS: HEMATOCRIT 35.3 % (42-54); MEAN CORPUSCULAR HEMOGLOBIN 28.8 pg (27.0-33.0); MEAN CORPUSCULAR HGB CONC 33.8 g/dL (32.0-36.0); MEAN CORPUSCULAR VOLUME 85.4 fL (79-99); PLATELET COUNT (AUTO) 331 K/uL (130-400); RED BLOOD CELL COUNT(AUTO) 4.14 MIL/uL (4.50-6.20); RED CELL DISTRIBUTION WIDTH 13.9 % (11.0-15.5)
[2017-09-07 13:31] LABS: ABG BASE EXCESS -4.6 mmol/L (-2.0-3.0); ABG HCO3 21.7 mmol/L (21.0-28.0); ABG OXYGEN SATURATION 90.8 % (95.0-99.0); ABG PCO2 45 mmHg (35-48)
[2017-09-07 13:45] LABS: CREATININE 0.9 mg/dL (0.5-1.5); MAGNESIUM 2.2 mg/dL (1.80-2.40); PHOSPHORUS 5.2 mg/dL (2.5-4.9); POTASSIUM 4.7 mmol/L (3.5-5.1); WHITE BLOOD COUNT (AUTO) 34.3 K/uL (4.8-10.8)
[2017-09-07] MEDS ORDERED: FUROSEMIDE 10 MG/ML 2ML VIAL ONE (13:46)
[2017-09-07 14:25] LABS: BAND NEUTROPHILS % (MANUAL) 7 % (0-2); EOSINOPHILS % (MANUAL) 1 % (1-6); LYMPHOCYTES % (MANUAL) 10 % (22-44); SEGMENTED NEUTROPHILS % 82 % (40-70)
[2017-09-07 14:26] LABS: MAN.DIFF COMMENT-IMPRESSION MANUAL DIFFERENTIAL
[2017-09-07 14:27] LABS: PLATELET MORPHOLOGY COMMENT ADEQUATE
[2017-09-07 14:38] LABS: ABG BASE EXCESS -0.9 mmol/L (-2.0-3.0); ABG OXYGEN SATURATION 97.6 % (95.0-99.0); ABG PCO2 41 mmHg (35-48)
[2017-09-07 14:41] LABS: INR 1.1 (0.85-1.15); PROTHROMBIN TIME 11.5 SEC (9.6-11.6)
[2017-09-07] MEDS ORDERED: PROTAMINE SULFATE 10 MG/ML 5 ML VIAL ONE (16:07)
[2017-09-07] MEDS ORDERED: PROTAMINE SULFATE 100 MG in SODIUM CHLORIDE 0.9% 50 ML IVP SCH (16:08)
[2017-09-07] MEDS ORDERED: SODIUM CHLORIDE 0.9% 100 ML IV ONE (16:08)
[2017-09-07 16:10] LABS: HEMATOCRIT 34.9 % (42-54); MEAN CORPUSCULAR HEMOGLOBIN 29.2 pg (27.0-33.0); MEAN CORPUSCULAR HGB CONC 34.6 g/dL (32.0-36.0); MEAN CORPUSCULAR VOLUME 84.3 fL (79-99); PLATELET COUNT (AUTO) 345 K/uL (130-400); RED BLOOD CELL COUNT(AUTO) 4.15 MIL/uL (4.50-6.20)
[2017-09-07] MEDS ORDERED: PROTAMINE SULFATE 10 MG/ML 5 ML VIAL IVP SCH (16:15)
[2017-09-07 16:21] LABS: WHITE BLOOD COUNT (AUTO) 36.3 K/uL (4.8-10.8)
[2017-09-07 16:39] LABS: ABG BASE EXCESS 1.7 mmol/L (-2.0-3.0); ABG HCO3 23.9 mmol/L (21.0-28.0); ABG OXYGEN SATURATION 98.1 % (95.0-99.0); ABG PCO2 31 mmHg (35-48)
[2017-09-07] MEDS ORDERED: SODIUM BICARB 8.4% 50ML SYRINGE IVP ONE (16:45)
[2017-09-07] MEDS ORDERED: FUROSEMIDE 10 MG/ML 2ML VIAL IV ONE (16:45)
[2017-09-07] MEDS: CEFTRIAXONE SODIUM 1 GM IVP SCH (17:20)
[2017-09-07] MEDS ORDERED: EPINEPHRINE 8 MG in DEXTROSE 5%-WATER 250 ML IV PRN (18:30)
[2017-09-07] MEDS ORDERED: EPINEPHRINE 8 MG in SODIUM CHLORIDE 0.9% 250 ML IV PRN (18:41)
[2017-09-07] MEDS: TRAMADOL HCL 50 MG TABLET PO PRN (21:04)
[2017-09-07] MEDS: FAMOTIDINE/PF 20 MG/2 ML VIAL IV SCH (21:04)
[2017-09-08] VITALS (23 sets, daily range): BP systolic 74–133; BP diastolic 41–68
[2017-09-08 03:56] LABS: HEMATOCRIT 28.6 % (42-54); MEAN CORPUSCULAR HEMOGLOBIN 28.9 pg (27.0-33.0); MEAN CORPUSCULAR HGB CONC 34.2 g/dL (32.0-36.0); MEAN CORPUSCULAR VOLUME 84.5 fL (79-99); PLATELET COUNT (AUTO) 200 K/uL (130-400); RED BLOOD CELL COUNT(AUTO) 3.38 MIL/uL (4.50-6.20); RED CELL DISTRIBUTION WIDTH 14.2 % (11.0-15.5)
[2017-09-08 04:05] LABS: CREATININE 1.2 mg/dL (0.5-1.5); MAGNESIUM 2.1 mg/dL (1.80-2.40); PHOSPHORUS 3.7 mg/dL (2.5-4.9); POTASSIUM 3.6 mmol/L (3.5-5.1)
[2017-09-08 04:45] LABS: ABG BASE EXCESS 2.4 mmol/L (-2.0-3.0); ABG OXYGEN SATURATION 97.9 % (95.0-99.0); ABG PCO2 32 mmHg (35-48)
[2017-09-08] MEDS: POTASSIUM CHLORIDE 20MEQ/100ML 100 ML IV PRN (04:45)
[2017-09-08] MEDS: TRAMADOL HCL 50 MG TABLET PO PRN ×3 (04:47→23:54)
[2017-09-08] MEDS: CEFUROXIME SODIUM 1.5 GM VIAL IVP SCH ×2 (08:39→20:30)
[2017-09-08] MEDS: ATORVASTATIN CALCIUM 40 MG TABLET PO SCH (08:40)
[2017-09-08] MEDS: FAMOTIDINE/PF 20 MG/2 ML VIAL IV SCH ×2 (08:40→20:20)
[2017-09-08] MEDS: NOREPINEPHRINE 4MG/NS 250ML 250 ML IV PRN ×2 (09:15→18:15)
[2017-09-08] MEDS: ASPIRIN 81MG TAB.CHEW PO SCH (10:29)
[2017-09-08] MEDS: FUROSEMIDE 20 MG TABLET PO SCH (10:30)
[2017-09-08] MEDS: NYSTATIN 100000 UNIT/ML 5ML UDCUP PO SCH ×2 (13:29→20:20)
[2017-09-08] MEDS: CEFTRIAXONE SODIUM 1 GM IVP SCH (16:48)
[2017-09-09] VITALS (23 sets, daily range): BP systolic 84–105; BP diastolic 42–67
[2017-09-09 03:49] LABS: HEMATOCRIT 27.6 % (42-54); MEAN CORPUSCULAR HEMOGLOBIN 29.5 pg (27.0-33.0); MEAN CORPUSCULAR HGB CONC 34.8 g/dL (32.0-36.0); MEAN CORPUSCULAR VOLUME 84.6 fL (79-99); PLATELET COUNT (AUTO) 237 K/uL (130-400); RED BLOOD CELL COUNT(AUTO) 3.26 MIL/uL (4.50-6.20); RED CELL DISTRIBUTION WIDTH 14.2 % (11.0-15.5); WHITE BLOOD COUNT (AUTO) 24.1 K/uL (4.8-10.8)
[2017-09-09 03:59] LABS: ALBUMIN 2.1 g/dL (3.5-5.0); BILIRUBIN,TOTAL 0.5 mg/dL (0.2-1.0); CREATININE 0.9 mg/dL (0.5-1.5); POTASSIUM 3.6 mmol/L (3.5-5.1); TOTAL PROTEIN, SERUM 5.6 g/dL (6.0-8.3)
[2017-09-09] MEDS: NYSTATIN 100000 UNIT/ML 5ML UDCUP PO SCH ×3 (06:47→20:26)
[2017-09-09] MEDS: POTASSIUM CHLORIDE 20MEQ/100ML 100 ML IV PRN (06:48)
[2017-09-09] MEDS ORDERED: LIDOCAINE HCL-MPF 1% 2ML VIAL IVP PRN (07:45)
[2017-09-09] MEDS ORDERED: POTASSIUM CHLORIDE 20MEQ/100ML 100 ML IV PRN (07:45)
[2017-09-09] MEDS: FAMOTIDINE/PF 20 MG/2 ML VIAL IV SCH ×2 (08:47→20:26)
[2017-09-09] MEDS: ATORVASTATIN CALCIUM 40 MG TABLET PO SCH (08:47)
[2017-09-09] MEDS: FUROSEMIDE 20 MG TABLET PO SCH ×2 (08:48→20:26)
[2017-09-09] MEDS: ASPIRIN 81MG TAB.CHEW PO SCH (08:56)
[2017-09-09] MEDS: INSULIN HUMULIN R 100 UNIT/ML 3ML SQ SCH ×3 (11:30→20:27)
[2017-09-09] MEDS: POTASSIUM CHLORIDE 20 MEQ ERTAB PO PRN ×2 (11:43→14:40)
[2017-09-09] MEDS ORDERED: FUROSEMIDE 20 MG TABLET PO SCH (17:00)
[2017-09-09] MEDS: CEFTRIAXONE SODIUM 1 GM IVP SCH (17:04)
[2017-09-09] MEDS ORDERED: PHENOL 177 ML BOTTLE PO PRN ×2 (17:30→19:15)
[2017-09-10] VITALS (25 sets, daily range): BP systolic 87–106; BP diastolic 49–68
[2017-09-10] MEDS: SODIUM CHLORIDE 0.9% 500ML 500 ML IV SCH (00:20)
[2017-09-10] MEDS: NYSTATIN 100000 UNIT/ML 5ML UDCUP PO SCH ×3 (04:12→19:58)
[2017-09-10 04:16] LABS: HEMATOCRIT 26.9 % (42-54); MEAN CORPUSCULAR HEMOGLOBIN 29.7 pg (27.0-33.0); MEAN CORPUSCULAR HGB CONC 34.9 g/dL (32.0-36.0); MEAN CORPUSCULAR VOLUME 84.9 fL (79-99); NUCLEATED RED BLOOD CELLS 0.1 % (0.0-0.19); PLATELET COUNT (AUTO) 209 K/uL (130-400); RED BLOOD CELL COUNT(AUTO) 3.16 MIL/uL (4.50-6.20); RED CELL DISTRIBUTION WIDTH 14.2 % (11.0-15.5); WHITE BLOOD COUNT (AUTO) 19.9 K/uL (4.8-10.8)
[2017-09-10 04:33] LABS: ALBUMIN 1.9 g/dL (3.5-5.0); BILIRUBIN,TOTAL 0.5 mg/dL (0.2-1.0); MAGNESIUM 2.2 mg/dL (1.80-2.40); PHOSPHORUS 3.4 mg/dL (2.5-4.9); POTASSIUM 4.3 mmol/L (3.5-5.1); TOTAL PROTEIN, SERUM 5.9 g/dL (6.0-8.3)
[2017-09-10 04:40] LABS: B-TYPE NATRIURETIC PEPTIDE 4190 pg/mL (0-100)
[2017-09-10] MEDS: INSULIN HUMULIN R 100 UNIT/ML 3ML SQ SCH ×4 (06:34→20:04)
[2017-09-10] MEDS: ASPIRIN 81MG TAB.CHEW PO SCH (08:28)
[2017-09-10] MEDS: ATORVASTATIN CALCIUM 40 MG TABLET PO SCH (08:28)
[2017-09-10] MEDS: FUROSEMIDE 20 MG TABLET PO SCH ×2 (08:28→17:40)
[2017-09-10] MEDS ORDERED: FAMOTIDINE 20MG TAB 20 MG TAB ONE (08:48)
[2017-09-10] MEDS ORDERED: POLYETHYLENE GLYCOL 3350 17 GM POWD.PACK ONE (08:48)
[2017-09-10] MEDS: POLYETHYLENE GLYCOL 3350 17 GM POWD.PACK PO SCH (08:55)
[2017-09-10] MEDS: CLOPIDOGREL BISULFATE 75 MG TAB PO SCH ×2 (09:00→12:37)
[2017-09-10] MEDS: FAMOTIDINE 20MG TAB 20 MG TAB PO SCH ×2 (09:00→19:58)
[2017-09-10] MEDS: CYANOCOBALAMIN (VITAMIN B-12) 1,000 MCG TABLET PO SCH (12:37)
[2017-09-10] MEDS: FERROUS SULFATE 325 MG TABLET.DR PO SCH ×2 (12:37→17:39)
[2017-09-10] MEDS: TRAMADOL HCL 50 MG TABLET PO PRN (12:38)
[2017-09-10] MEDS: FOLIC ACID 1 MG TABLET PO SCH (12:38)
[2017-09-10] MEDS: CEFTRIAXONE SODIUM 1 GM IVP SCH (17:39)
[2017-09-11] VITALS (19 sets, daily range): BP systolic 87–108; BP diastolic 43–65
[2017-09-11] MEDS: NYSTATIN 100000 UNIT/ML 5ML UDCUP PO SCH ×3 (06:33→20:55)
[2017-09-11] MEDS: INSULIN HUMULIN R 100 UNIT/ML 3ML SQ SCH ×4 (06:34→21:03)
[2017-09-11] MEDS: FERROUS SULFATE 325 MG TABLET.DR PO SCH ×3 (08:00→17:38)
[2017-09-11] MEDS: POLYETHYLENE GLYCOL 3350 17 GM POWD.PACK PO SCH (09:00)
[2017-09-11] MEDS: FUROSEMIDE 20 MG TABLET PO SCH ×2 (09:22→17:38)
[2017-09-11] MEDS: FOLIC ACID 1 MG TABLET PO SCH (09:22)
[2017-09-11] MEDS: CYANOCOBALAMIN (VITAMIN B-12) 1,000 MCG TABLET PO SCH (09:22)
[2017-09-11] MEDS: ATORVASTATIN CALCIUM 40 MG TABLET PO SCH (09:22)
[2017-09-11] MEDS: FAMOTIDINE 20MG TAB 20 MG TAB PO SCH ×2 (09:22→20:56)
[2017-09-11] MEDS: TRAMADOL HCL 50 MG TABLET PO PRN (09:25)
[2017-09-11] MEDS: ASPIRIN 81MG TAB.CHEW PO SCH (17:38)
[2017-09-11] MEDS: CLOPIDOGREL BISULFATE 75 MG TAB PO SCH (17:38)
[2017-09-11] MEDS ORDERED: EPOETIN ALFA 20,000 UNIT/ML VIAL SQ SCH (21:00)
[2017-09-12 03:32] VITALS: BP 94/59
[2017-09-12] MEDS: NYSTATIN 100000 UNIT/ML 5ML UDCUP PO SCH ×3 (05:04→20:52)
[2017-09-12] MEDS: INSULIN HUMULIN R 100 UNIT/ML 3ML SQ SCH ×4 (05:59→21:00)
[2017-09-12 07:00] VITALS: BP 102/62
[2017-09-12] MEDS: FERROUS SULFATE 325 MG TABLET.DR PO SCH ×3 (08:32→17:24)
[2017-09-12 09:58] LABS: POTASSIUM 4.8 mmol/L (3.5-5.1)
[2017-09-12] MEDS: CLOPIDOGREL BISULFATE 75 MG TAB PO SCH (10:45)
[2017-09-12] MEDS: FAMOTIDINE 20MG TAB 20 MG TAB PO SCH ×2 (10:45→20:52)
[2017-09-12] MEDS: ASPIRIN 81MG TAB.CHEW PO SCH (10:45)
[2017-09-12] MEDS: CYANOCOBALAMIN (VITAMIN B-12) 1,000 MCG TABLET PO SCH (10:45)
[2017-09-12] MEDS: ATORVASTATIN CALCIUM 40 MG TABLET PO SCH (10:45)
[2017-09-12] MEDS: POLYETHYLENE GLYCOL 3350 17 GM POWD.PACK PO SCH (10:46)
[2017-09-12] MEDS: FOLIC ACID 1 MG TABLET PO SCH (10:46)
[2017-09-12] MEDS: FUROSEMIDE 40 MG TABLET PO SCH ×2 (10:46→17:24)
[2017-09-12 11:00] VITALS: BP 97/57
[2017-09-12] MEDS: TRAMADOL HCL 50 MG TABLET PO PRN (13:25)
[2017-09-12 16:00] VITALS: BP 92/60
[2017-09-12 19:38] VITALS: BP 97/75
[2017-09-12 23:49] VITALS: BP 89/52
[2017-09-13] MEDS: SODIUM CHLORIDE 0.9% 500ML 500 ML IV SCH (02:25)
[2017-09-13 03:49] LABS: HEMATOCRIT 28.2 % (42-54); MEAN CORPUSCULAR HEMOGLOBIN 29.6 pg (27.0-33.0); MEAN CORPUSCULAR HGB CONC 34.2 g/dL (32.0-36.0); MEAN CORPUSCULAR VOLUME 86.4 fL (79-99); NUCLEATED RED BLOOD CELLS 0.1 % (0.0-0.19); PLATELET COUNT (AUTO) 305 K/uL (130-400); RED BLOOD CELL COUNT(AUTO) 3.26 MIL/uL (4.50-6.20); RED CELL DISTRIBUTION WIDTH 14.5 % (11.0-15.5); WHITE BLOOD COUNT (AUTO) 14.3 K/uL (4.8-10.8)
[2017-09-13 04:05] VITALS: BP 91/56
[2017-09-13] MEDS: NYSTATIN 100000 UNIT/ML 5ML UDCUP PO SCH ×3 (04:53→21:10)
[2017-09-13] MEDS: INSULIN HUMULIN R 100 UNIT/ML 3ML SQ SCH ×4 (05:51→21:42)
[2017-09-13 07:00] VITALS: BP 98/60
[2017-09-13] MEDS: FERROUS SULFATE 325 MG TABLET.DR PO SCH ×3 (08:00→16:45)
[2017-09-13] MEDS: FOLIC ACID 1 MG TABLET PO SCH (10:21)
[2017-09-13] MEDS: CLOPIDOGREL BISULFATE 75 MG TAB PO SCH (10:21)
[2017-09-13] MEDS: CYANOCOBALAMIN (VITAMIN B-12) 1,000 MCG TABLET PO SCH (10:21)
[2017-09-13] MEDS: ATORVASTATIN CALCIUM 40 MG TABLET PO SCH (10:21)
[2017-09-13] MEDS: FUROSEMIDE 40 MG TABLET PO SCH ×2 (10:21→16:46)
[2017-09-13] MEDS: FAMOTIDINE 20MG TAB 20 MG TAB PO SCH ×2 (10:21→21:10)
[2017-09-13] MEDS: POLYETHYLENE GLYCOL 3350 17 GM POWD.PACK PO SCH (10:21)
[2017-09-13] MEDS: ASPIRIN 81MG TAB.CHEW PO SCH (10:21)
[2017-09-13 11:00] VITALS: BP 98/56
[2017-09-13 16:00] VITALS: BP 99/57
[2017-09-13] MEDS: TRAMADOL HCL 50 MG TABLET PO PRN (16:46)
[2017-09-13 19:43] VITALS: BP 134/61
[2017-09-13] MEDS: LISINOPRIL 2.5 MG TABLET PO SCH (21:12)
[2017-09-13 23:28] VITALS: BP 88/58
[2017-09-14] MEDS: SODIUM CHLORIDE 0.9% 500ML 500 ML IV SCH (00:03)
[2017-09-14 03:48] VITALS: BP 86/57
[2017-09-14 04:32] LABS: HEMATOCRIT 26.1 % (42-54); MEAN CORPUSCULAR HEMOGLOBIN 30.2 pg (27.0-33.0); MEAN CORPUSCULAR HGB CONC 35.3 g/dL (32.0-36.0); MEAN CORPUSCULAR VOLUME 85.5 fL (79-99); PLATELET COUNT (AUTO) 265 K/uL (130-400); RED BLOOD CELL COUNT(AUTO) 3.05 MIL/uL (4.50-6.20); RED CELL DISTRIBUTION WIDTH 14.9 % (11.0-15.5); WHITE BLOOD COUNT (AUTO) 12.9 K/uL (4.8-10.8)
[2017-09-14 05:01] LABS: ALBUMIN 1.6 g/dL (3.5-5.0); BILIRUBIN,TOTAL 0.6 mg/dL (0.2-1.0); CREATININE 0.9 mg/dL (0.5-1.5); MAGNESIUM 1.9 mg/dL (1.80-2.40); PHOSPHORUS 3.2 mg/dL (2.5-4.9); POTASSIUM 3.6 mmol/L (3.5-5.1); TOTAL PROTEIN, SERUM 5.5 g/dL (6.0-8.3)
[2017-09-14] MEDS: INSULIN HUMULIN R 100 UNIT/ML 3ML SQ SCH ×4 (05:37→22:48)
[2017-09-14] MEDS: NYSTATIN 100000 UNIT/ML 5ML UDCUP PO SCH ×3 (05:38→21:41)
[2017-09-14] MEDS: POTASSIUM CHLORIDE 20MEQ/100ML 100 ML IV PRN (05:39)
[2017-09-14 07:53] VITALS: BP 96/60
[2017-09-14] MEDS: FUROSEMIDE 40 MG TABLET PO SCH ×2 (10:29→17:00)
[2017-09-14] MEDS: ATORVASTATIN CALCIUM 40 MG TABLET PO SCH (10:29)
[2017-09-14] MEDS: CLOPIDOGREL BISULFATE 75 MG TAB PO SCH (10:29)
[2017-09-14] MEDS: FAMOTIDINE 20MG TAB 20 MG TAB PO SCH ×2 (10:29→21:41)
[2017-09-14] MEDS: POLYETHYLENE GLYCOL 3350 17 GM POWD.PACK PO SCH (10:30)
[2017-09-14] MEDS: POTASSIUM CHLORIDE 20 MEQ ERTAB PO PRN (10:30)
[2017-09-14] MEDS: ASPIRIN 81MG TAB.CHEW PO SCH (10:30)
[2017-09-14] MEDS: FOLIC ACID 1 MG TABLET PO SCH (10:30)
[2017-09-14] MEDS: CYANOCOBALAMIN (VITAMIN B-12) 1,000 MCG TABLET PO SCH (10:31)
[2017-09-14] MEDS: FERROUS SULFATE 325 MG TABLET.DR PO SCH ×3 (10:31→17:54)
[2017-09-14 11:57] VITALS: BP 87/53
[2017-09-14 16:00] VITALS: BP 95/61
[2017-09-14 19:39] VITALS: BP 90/52
[2017-09-14] MEDS: LISINOPRIL 2.5 MG TABLET PO SCH (21:00)
[2017-09-14 23:56] VITALS: BP 106/64
[2017-09-15 04:00] VITALS: BP 93/58
[2017-09-15] MEDS: NYSTATIN 100000 UNIT/ML 5ML UDCUP PO SCH ×3 (05:22→21:56)
[2017-09-15] MEDS: INSULIN HUMULIN R 100 UNIT/ML 3ML SQ SCH ×4 (06:04→22:01)
[2017-09-15 07:36] VITALS: BP 92/54
[2017-09-15] MEDS: FUROSEMIDE 40 MG TABLET PO SCH ×2 (09:00→17:03)
[2017-09-15] MEDS: ASPIRIN 81MG TAB.CHEW PO SCH (09:42)
[2017-09-15] MEDS: FAMOTIDINE 20MG TAB 20 MG TAB PO SCH ×2 (09:42→21:56)
[2017-09-15] MEDS: CLOPIDOGREL BISULFATE 75 MG TAB PO SCH (09:42)
[2017-09-15] MEDS: FERROUS SULFATE 325 MG TABLET.DR PO SCH ×3 (09:42→17:03)
[2017-09-15] MEDS: CYANOCOBALAMIN (VITAMIN B-12) 1,000 MCG TABLET PO SCH (09:42)
[2017-09-15] MEDS: POLYETHYLENE GLYCOL 3350 17 GM POWD.PACK PO SCH (09:42)
[2017-09-15] MEDS: FOLIC ACID 1 MG TABLET PO SCH (09:42)
[2017-09-15] MEDS: ATORVASTATIN CALCIUM 40 MG TABLET PO SCH (09:42)
[2017-09-15 11:21] VITALS: BP 92/53
[2017-09-15] MEDS ORDERED: MIDODRINE HCL 5 MG TABLET ONE (14:01)
[2017-09-15] MEDS: MIDODRINE HCL 5 MG TABLET PO SCH ×2 (14:04→21:56)
[2017-09-15 16:17] VITALS: BP 102/58
[2017-09-15] MEDS: POTASSIUM CHLORIDE 20 MEQ ERTAB PO PRN (17:10)
[2017-09-15] MEDS: POTASSIUM CHLORIDE 10% ELIXIR 20 MEQ/15 ML UDCUP PO PRN (17:10)
[2017-09-15 19:30] VITALS: BP 108/67
[2017-09-15] MEDS: LISINOPRIL 2.5 MG TABLET PO SCH (21:00)
[2017-09-15 23:30] VITALS: BP 118/60
[2017-09-16 04:05] VITALS: BP 101/59
[2017-09-16] MEDS: NYSTATIN 100000 UNIT/ML 5ML UDCUP PO SCH ×3 (04:20→21:29)
[2017-09-16 07:16] VITALS: BP 106/62
[2017-09-16] MEDS: INSULIN HUMULIN R 100 UNIT/ML 3ML SQ SCH ×4 (07:30→21:27)
[2017-09-16 07:39] LABS: MEAN CORPUSCULAR HGB CONC 34.3 g/dL (32.0-36.0); MEAN CORPUSCULAR VOLUME 87.3 fL (79-99); PLATELET COUNT (AUTO) 277 K/uL (130-400); RED BLOOD CELL COUNT(AUTO) 3.21 MIL/uL (4.50-6.20); RED CELL DISTRIBUTION WIDTH 15.2 % (11.0-15.5); WHITE BLOOD COUNT (AUTO) 11.6 K/uL (4.8-10.8)
[2017-09-16] MEDS: POTASSIUM CHLORIDE 20 MEQ ERTAB PO SCH ×2 (09:50→21:00)
[2017-09-16] MEDS: ASPIRIN 81MG TAB.CHEW PO SCH (09:51)
[2017-09-16] MEDS: FAMOTIDINE 20MG TAB 20 MG TAB PO SCH ×2 (09:51→21:30)
[2017-09-16] MEDS: MIDODRINE HCL 5 MG TABLET PO SCH ×3 (09:51→21:29)
[2017-09-16] MEDS: FOLIC ACID 1 MG TABLET PO SCH (09:51)
[2017-09-16] MEDS: ATORVASTATIN CALCIUM 40 MG TABLET PO SCH (09:51)
[2017-09-16] MEDS: CYANOCOBALAMIN (VITAMIN B-12) 1,000 MCG TABLET PO SCH (09:51)
[2017-09-16] MEDS: POLYETHYLENE GLYCOL 3350 17 GM POWD.PACK PO SCH (09:52)
[2017-09-16] MEDS: FUROSEMIDE 40 MG TABLET PO SCH ×3 (09:52→21:30)
[2017-09-16] MEDS: CLOPIDOGREL BISULFATE 75 MG TAB PO SCH (09:52)
[2017-09-16] MEDS: FERROUS SULFATE 325 MG TABLET.DR PO SCH ×3 (09:56→17:00)
[2017-09-16 11:24] VITALS: BP 93/55
[2017-09-16] MEDS: EPOETIN ALFA 2,000 UNIT/ML VIAL SQ SCH (15:35)
[2017-09-16 16:43] VITALS: BP 109/67
[2017-09-16 20:02] VITALS: BP 98/64
[2017-09-16] MEDS: LISINOPRIL 2.5 MG TABLET PO SCH (21:00)
[2017-09-16] MEDS ORDERED: POTASSIUM CHLORIDE 10 MEQ/TAB.SA PO ONE ×2 (21:24→21:25)
[2017-09-16 23:58] VITALS: BP 103/66
[2017-09-17 04:00] VITALS: BP 106/66
[2017-09-17] MEDS: NYSTATIN 100000 UNIT/ML 5ML UDCUP PO SCH ×3 (04:39→21:07)
[2017-09-17 05:05] LABS: MEAN CORPUSCULAR HEMOGLOBIN 30.2 pg (27.0-33.0); MEAN CORPUSCULAR HGB CONC 34.8 g/dL (32.0-36.0); PLATELET COUNT (AUTO) 325 K/uL (130-400); RED BLOOD CELL COUNT(AUTO) 3.22 MIL/uL (4.50-6.20); RED CELL DISTRIBUTION WIDTH 16.3 % (11.0-15.5); WHITE BLOOD COUNT (AUTO) 10.8 K/uL (4.8-10.8)
[2017-09-17 05:21] LABS: CREATININE 1.1 mg/dL (0.5-1.5); POTASSIUM 4.3 mmol/L (3.5-5.1)
[2017-09-17 06:22] LABS: B-TYPE NATRIURETIC PEPTIDE 2890 pg/mL (0-100)
[2017-09-17] MEDS: INSULIN HUMULIN R 100 UNIT/ML 3ML SQ SCH ×4 (07:30→21:00)
[2017-09-17 08:14] VITALS: BP 97/57
[2017-09-17] MEDS: FOLIC ACID 1 MG TABLET PO SCH (10:16)
[2017-09-17] MEDS: ATORVASTATIN CALCIUM 40 MG TABLET PO SCH (10:16)
[2017-09-17] MEDS: CLOPIDOGREL BISULFATE 75 MG TAB PO SCH (10:16)
[2017-09-17] MEDS: FUROSEMIDE 40 MG TABLET PO SCH ×2 (10:17→13:24)
[2017-09-17] MEDS: FAMOTIDINE 20MG TAB 20 MG TAB PO SCH ×2 (10:17→21:08)
[2017-09-17] MEDS: POTASSIUM CHLORIDE 20 MEQ ERTAB PO SCH ×2 (10:18→21:08)
[2017-09-17] MEDS: CYANOCOBALAMIN (VITAMIN B-12) 1,000 MCG TABLET PO SCH (10:19)
[2017-09-17] MEDS: POLYETHYLENE GLYCOL 3350 17 GM POWD.PACK PO SCH (10:19)
[2017-09-17] MEDS: ASPIRIN 81MG TAB.CHEW PO SCH (10:19)
[2017-09-17] MEDS: FERROUS SULFATE 325 MG TABLET.DR PO SCH ×3 (10:19→16:15)
[2017-09-17] MEDS: MIDODRINE HCL 5 MG TABLET PO SCH ×3 (10:19→21:07)
[2017-09-17] MEDS: EPOETIN ALFA 2,000 UNIT/ML VIAL SQ SCH (10:30)
[2017-09-17 11:36] VITALS: BP 91/54
[2017-09-17 16:40] VITALS: BP 115/71
[2017-09-17] MEDS ORDERED: FUROSEMIDE 10 MG/ML 4ML VIAL IV SCH (18:00)
[2017-09-17] MEDS: MILRINONE-D5W 20 MG/100 ML 100 ML IV SCH (18:12)
[2017-09-17 20:04] VITALS: BP 120/76
[2017-09-17] MEDS: LISINOPRIL 2.5 MG TABLET PO SCH (21:08)
[2017-09-18] VITALS (7 sets, daily range): BP systolic 88–108; BP diastolic 45–64
[2017-09-18] MEDS: NYSTATIN 100000 UNIT/ML 5ML UDCUP PO SCH ×3 (05:03→20:51)
[2017-09-18] MEDS: FUROSEMIDE 10 MG/ML 4ML VIAL IV SCH ×2 (05:03→16:26)
[2017-09-18 05:16] LABS: POTASSIUM 3.8 mmol/L (3.5-5.1)
[2017-09-18] MEDS: INSULIN HUMULIN R 100 UNIT/ML 3ML SQ SCH ×4 (07:30→21:06)
[2017-09-18] MEDS: POLYETHYLENE GLYCOL 3350 17 GM POWD.PACK PO SCH (08:25)
[2017-09-18] MEDS: FERROUS SULFATE 325 MG TABLET.DR PO SCH ×3 (08:25→16:26)
[2017-09-18] MEDS: ASPIRIN 81MG TAB.CHEW PO SCH (08:25)
[2017-09-18] MEDS: ATORVASTATIN CALCIUM 40 MG TABLET PO SCH (08:25)
[2017-09-18] MEDS: FOLIC ACID 1 MG TABLET PO SCH (08:25)
[2017-09-18] MEDS: MIDODRINE HCL 5 MG TABLET PO SCH (08:25)
[2017-09-18] MEDS: CYANOCOBALAMIN (VITAMIN B-12) 1,000 MCG TABLET PO SCH (08:25)
[2017-09-18] MEDS: CLOPIDOGREL BISULFATE 75 MG TAB PO SCH (08:25)
[2017-09-18] MEDS: FAMOTIDINE 20MG TAB 20 MG TAB PO SCH ×2 (08:25→20:51)
[2017-09-18] MEDS: POTASSIUM CHLORIDE 20 MEQ ERTAB PO SCH ×2 (08:26→20:51)
[2017-09-18] MEDS: MILRINONE-D5W 20 MG/100 ML 100 ML IV SCH (08:27)
[2017-09-18] MEDS: POTASSIUM CHLORIDE 10% ELIXIR 20 MEQ/15 ML UDCUP PO PRN ×2 (16:30→18:19)
[2017-09-18] MEDS: LISINOPRIL 2.5 MG TABLET PO SCH (20:56)
[2017-09-19 03:35] VITALS: BP 102/63
[2017-09-19] MEDS: NYSTATIN 100000 UNIT/ML 5ML UDCUP PO SCH ×3 (04:10→22:27)
[2017-09-19] MEDS: FUROSEMIDE 10 MG/ML 4ML VIAL IV SCH ×2 (04:10→17:20)
[2017-09-19] MEDS: MILRINONE-D5W 20 MG/100 ML 100 ML IV SCH ×2 (04:10→22:57)
[2017-09-19 04:18] LABS: CREATININE 1.1 mg/dL (0.5-1.5); POTASSIUM 4.4 mmol/L (3.5-5.1)
[2017-09-19] MEDS: INSULIN HUMULIN R 100 UNIT/ML 3ML SQ SCH ×4 (06:15→22:34)
[2017-09-19 08:05] VITALS: BP 97/64
[2017-09-19] MEDS: POLYETHYLENE GLYCOL 3350 17 GM POWD.PACK PO SCH (10:35)
[2017-09-19] MEDS: CLOPIDOGREL BISULFATE 75 MG TAB PO SCH (10:35)
[2017-09-19] MEDS: ATORVASTATIN CALCIUM 40 MG TABLET PO SCH (10:36)
[2017-09-19] MEDS: FOLIC ACID 1 MG TABLET PO SCH (10:36)
[2017-09-19] MEDS: FERROUS SULFATE 325 MG TABLET.DR PO SCH ×3 (10:36→17:20)
[2017-09-19] MEDS: POTASSIUM CHLORIDE 20 MEQ ERTAB PO SCH ×2 (10:36→22:28)
[2017-09-19] MEDS: ASPIRIN 81MG TAB.CHEW PO SCH (10:36)
[2017-09-19] MEDS: CYANOCOBALAMIN (VITAMIN B-12) 1,000 MCG TABLET PO SCH (10:36)
[2017-09-19] MEDS: FAMOTIDINE 20MG TAB 20 MG TAB PO SCH ×2 (10:36→22:28)
[2017-09-19 12:09] VITALS: BP 106/67
[2017-09-19 16:00] VITALS: BP 99/63
[2017-09-19 19:34] VITALS: BP 110/60
[2017-09-19] MEDS: LISINOPRIL 2.5 MG TABLET PO SCH (22:28)
[2017-09-19 23:58] VITALS: BP 97/62
[2017-09-20 04:14] VITALS: BP 96/56
[2017-09-20 04:31] LABS: CREATININE 1.1 mg/dL (0.5-1.5); POTASSIUM 4.1 mmol/L (3.5-5.1)
[2017-09-20] MEDS: NYSTATIN 100000 UNIT/ML 5ML UDCUP PO SCH ×3 (04:58→20:47)
[2017-09-20] MEDS: FUROSEMIDE 10 MG/ML 4ML VIAL IV SCH (04:59)
[2017-09-20] MEDS: INSULIN HUMULIN R 100 UNIT/ML 3ML SQ SCH ×4 (06:16→20:56)
[2017-09-20 08:19] VITALS: BP 97/68
[2017-09-20] MEDS: FOLIC ACID 1 MG TABLET PO SCH (09:05)
[2017-09-20] MEDS: ATORVASTATIN CALCIUM 40 MG TABLET PO SCH (09:05)
[2017-09-20] MEDS: ASPIRIN 81MG TAB.CHEW PO SCH (09:05)
[2017-09-20] MEDS: CLOPIDOGREL BISULFATE 75 MG TAB PO SCH (09:05)
[2017-09-20] MEDS: POLYETHYLENE GLYCOL 3350 17 GM POWD.PACK PO SCH (09:05)
[2017-09-20] MEDS: CYANOCOBALAMIN (VITAMIN B-12) 1,000 MCG TABLET PO SCH (09:05)
[2017-09-20] MEDS: FERROUS SULFATE 325 MG TABLET.DR PO SCH ×3 (09:05→18:18)
[2017-09-20] MEDS: FAMOTIDINE 20MG TAB 20 MG TAB PO SCH ×2 (09:05→20:48)
[2017-09-20] MEDS: POTASSIUM CHLORIDE 20 MEQ ERTAB PO SCH ×2 (09:06→20:48)
[2017-09-20 12:08] VITALS: BP 97/57
[2017-09-20] MEDS ORDERED: FUROSEMIDE 40 MG TABLET PO SCH (17:00)
[2017-09-20 19:33] VITALS: BP 93/55
[2017-09-20] MEDS: LISINOPRIL 2.5 MG TABLET PO SCH (20:48)
[2017-09-20 23:40] VITALS: BP 98/62
[2017-09-21 03:46] VITALS: BP 90/55
[2017-09-21 05:07] LABS: POTASSIUM 4.5 mmol/L (3.5-5.1)
[2017-09-21] MEDS: NYSTATIN 100000 UNIT/ML 5ML UDCUP PO SCH ×2 (05:32→13:00)
[2017-09-21] MEDS: INSULIN HUMULIN R 100 UNIT/ML 3ML SQ SCH ×2 (05:58→13:32)
[2017-09-21 07:00] VITALS: BP 95/61
[2017-09-21] MEDS ORDERED: FUROSEMIDE 80 MG TABLET PO SCH (09:00)
[2017-09-21 09:14] LABS: BASOPHILS % (AUTO) 0.9 % (0.0-5.0); EOSINOPHILS % (AUTO) 3.1 % (0.0-8.0); HEMATOCRIT 28.4 % (42-54); LYMPHOCYTES % (AUTO) 17.8 % (21.0-51.0); MEAN CORPUSCULAR HEMOGLOBIN 30.2 pg (27.0-33.0); MEAN CORPUSCULAR HGB CONC 34.3 g/dL (32.0-36.0); MEAN CORPUSCULAR VOLUME 88.1 fL (79-99); MONOCYTES % (AUTO) 5.1 % (3.0-13.0); NEUTROPHILS % (AUTO) 73.1 % (40.0-77.0); PLATELET COUNT (AUTO) 264 K/uL (130-400); RED BLOOD CELL COUNT(AUTO) 3.22 MIL/uL (4.50-6.20); RED CELL DISTRIBUTION WIDTH 17.1 % (11.0-15.5); WHITE BLOOD COUNT (AUTO) 7.8 K/uL (4.8-10.8)
[2017-09-21] MEDS: CLOPIDOGREL BISULFATE 75 MG TAB PO SCH (09:52)
[2017-09-21] MEDS: FERROUS SULFATE 325 MG TABLET.DR PO SCH ×2 (09:52→13:00)
[2017-09-21] MEDS: ASPIRIN 81MG TAB.CHEW PO SCH (09:52)
[2017-09-21] MEDS: CYANOCOBALAMIN (VITAMIN B-12) 1,000 MCG TABLET PO SCH (09:53)
[2017-09-21] MEDS: POLYETHYLENE GLYCOL 3350 17 GM POWD.PACK PO SCH (09:53)
[2017-09-21] MEDS: FAMOTIDINE 20MG TAB 20 MG TAB PO SCH (09:53)
[2017-09-21] MEDS: FOLIC ACID 1 MG TABLET PO SCH (09:53)
[2017-09-21] MEDS: POTASSIUM CHLORIDE 20 MEQ ERTAB PO SCH (09:53)
[2017-09-21] MEDS: ATORVASTATIN CALCIUM 40 MG TABLET PO SCH (09:53)
[2017-09-21 11:00] VITALS: BP 93/60
[2017-09-21] MEDS ORDERED: FURO80TA3 PO (12:42)
[2017-09-21] MEDS ORDERED: FOLI1TAB15 PO (12:42)
[2017-09-21] MEDS ORDERED: FAMO20TA8 PO (12:42)
[2017-09-21] MEDS ORDERED: ASPI-1005 PO (12:42)
[2017-09-21] MEDS ORDERED: CLOP75TA14 PO (12:42)
[2017-09-21] MEDS ORDERED: ATOR40TA69 PO (12:42)
[2017-09-21] MEDS ORDERED: LISI2.5T2 PO (12:42)
[2017-09-21] MEDS ORDERED: FERR324T4 PO (12:42)
[2017-09-21] MEDS ORDERED: FURO40TA7 PO (12:42)
[2017-09-21] MEDS ORDERED: CARV6.2579 PO (12:42)
[2017-09-21] MEDS ORDERED: POTA10TA14 PO (12:55)
== END 2017-09-21 16:00 | disposition home or self-care (01) | DRG 233 ==
LOC: EDH 15:56 → EDHIP 17:10 → 2CH 18:11 → 2BH 09-02 13:57 → 2CV 09-07 09:37 → 2CH 09-08 06:10 → 2AH 09-11 18:02
PROVIDERS: ADMIT Family Medicine; ATTEND Family Medicine
PROC: 0W9930Z Drainage of Right Pleural Cavity with Drainage Device, Percutaneous Approach (ICD-10-PCS; principal; 2017-09-01)
PROC: 4A023N7 Measurement of Cardiac Sampling and Pressure, Left Heart, Percutaneous Approach (ICD-10-PCS; 2017-09-03)
PROC: B2111ZZ Fluoroscopy of Multiple Coronary Arteries using Low Osmolar Contrast (ICD-10-PCS; 2017-09-03)
PROC: 02100Z9 Bypass Coronary Artery, One Artery from Left Internal Mammary, Open Approach (ICD-10-PCS; 2017-09-07)
PROC: 06BQ4ZZ Excision of Left Saphenous Vein, Percutaneous Endoscopic Approach (ICD-10-PCS; 2017-09-07)
PROC: 021109W Bypass Coronary Artery, Two Arteries from Aorta with Autologous Venous Tissue, Open Approach (ICD-10-PCS; 2017-09-07)
DX: I21.09 ST elevation (STEMI) myocardial infarction involving other coronary artery of anterior wall (principal); J96.01 Acute respiratory failure with hypoxia; R57.0 Cardiogenic shock; I50.43 Acute on chronic combined systolic (congestive) and diastolic (congestive) heart failure; I49.01 Ventricular fibrillation; N18.6 End stage renal disease; N02.9 Recurrent and persistent hematuria with unspecified morphologic changes; D62 Acute posthemorrhagic anemia; E46 Unspecified protein-calorie malnutrition; I13.2 Hypertensive heart and chronic kidney disease with heart failure and with stage 5 chronic kidney disease, or end stage renal disease; J90 Pleural effusion, not elsewhere classified; D72.829 Elevated white blood cell count, unspecified; E11.22 Type 2 diabetes mellitus with diabetic chronic kidney disease; E11.40 Type 2 diabetes mellitus with diabetic neuropathy, unspecified; E11.65 Type 2 diabetes mellitus with hyperglycemia; E66.9 Obesity, unspecified; E78.2 Mixed hyperlipidemia; F02.80 Dementia in other diseases classified elsewhere, unspecified severity, without behavioral disturbance, psychotic disturbance, mood disturbance, and anxiety; G30.9 Alzheimer's disease, unspecified; I25.10 Atherosclerotic heart disease of native coronary artery without angina pectoris; I25.5 Ischemic cardiomyopathy; I34.0 Nonrheumatic mitral (valve) insufficiency; E11.59 Type 2 diabetes mellitus with other circulatory complications; Z53.1 Procedure and treatment not carried out because of patient's decision for reasons of belief and group pressure; R62.7 Adult failure to thrive; Z79.01 Long term (current) use of anticoagulants; Z79.02 Long term (current) use of antithrombotics/antiplatelets; Z79.82 Long term (current) use of aspirin; Z79.899 Other long term (current) drug therapy; Z95.1 Presence of aortocoronary bypass graft; Z99.2 Dependence on renal dialysis; Z68.27 Body mass index [BMI] 27.0-27.9, adult; Z28.21 Immunization not carried out because of patient refusal
CPT/HCPCS: 36415; 71045; 71046; 71250; 74018; 74176; 76770; 80048; 80053; 80061; 81001; 82330; 82435; 82550; 82553; 82803; 82945; 82947; 82948; 83036; 83605; 83615; 83735; 83874; 83880; 84100; 84132; 84153; 84157; 84295; 84484; 85014; 85018; 85025; 85027; 85347; 85610; 85730; 88108; 88305; 89051; 93005; 93306; 93458; 93880; 94002; 94010; 94150; 97039; 99291; A4218; A7048; C1760; C1894; C9113; J0171; J0456; J0696; J0697; J0885; J1644; J1650; J1815; J1940; J2001; J2250; J2260; J2270; J2440; J2597; J2704; J2710; J2720; J3010; J3475; J3480; J3490; J7030; J7040; J7120; P9045; Q9967

== ENCOUNTER → 2018-01-02 | Outpatient (CLI) | payer OTHER, MEDICARE ==
[~2018-01-02] MED LIST: ASPI-1005 PO; ATOR40TA69 PO; CARV6.2579 PO; CLOP75TA14 PO; FAMO20TA8 PO; FERR324T4 PO; FOLI1TAB15 PO; FURO40TA7 PO; FURO80TA3 PO; LISI2.5T2 PO; POTA10TA14 PO
== END | disposition home or self-care (01) ==
LOC: SHCH 07:55
PROVIDERS: ATTEND Internal Medicine Cardiovascular Disease
DX: I25.5 Ischemic cardiomyopathy (principal); I11.0 Hypertensive heart disease with heart failure; I50.9 Heart failure, unspecified; E11.9 Type 2 diabetes mellitus without complications; I25.10 Atherosclerotic heart disease of native coronary artery without angina pectoris; Z95.1 Presence of aortocoronary bypass graft
CPT/HCPCS: 93306

== ENCOUNTER 2018-02-16 17:21 | Inpatient (IN) | payer OTHER, MEDICARE ==
[~2018-02-16] VITALS: Ht 162.6 cm; Wt 63.3 kg
[2018-02-16 18:06] LABS: BASOPHILS % (AUTO) 0.4 % (0.0-5.0); EOSINOPHILS % (AUTO) 2.5 % (0.0-8.0); HEMATOCRIT 31.2 % (42-54); LYMPHOCYTES % (AUTO) 15.7 % (21.0-51.0); MEAN CORPUSCULAR HEMOGLOBIN 29.9 pg (27.0-33.0); MEAN CORPUSCULAR HGB CONC 34.3 g/dL (32.0-36.0); MEAN CORPUSCULAR VOLUME 87.3 fL (79-99); MONOCYTES % (AUTO) 7.6 % (3.0-13.0); NEUTROPHILS % (AUTO) 73.8 % (40.0-77.0); PLATELET COUNT (AUTO) 222 K/uL (130-400); RED BLOOD CELL COUNT(AUTO) 3.57 MIL/uL (4.50-6.20); RED CELL DISTRIBUTION WIDTH 14.9 % (11.0-15.5); WHITE BLOOD COUNT (AUTO) 7.9 K/uL (4.8-10.8)
[2018-02-16 18:19] LABS: INR 1.15 (0.85-1.15); PARTIAL THROMBOPLASTIN TIME 32.7 SEC (26.3-35.5)
[2018-02-16 18:21] LABS: CREATININE 1.3 mg/dL (0.5-1.5); POTASSIUM 4.2 mmol/L (3.5-5.1)
[2018-02-16 18:27] LABS: BILIRUBIN,TOTAL 0.6 mg/dL (0.2-1.0); TOTAL PROTEIN, SERUM 7.8 g/dL (6.0-8.3)
[2018-02-16 18:32] LABS: B-TYPE NATRIURETIC PEPTIDE 1700 pg/mL (0-100)
[2018-02-16] MEDS ORDERED: CEFTRIAXONE SODIUM 1 GM ONE (18:46)
[2018-02-16] MEDS ORDERED: AZITHROMYCIN 250 MG TABLET PO ONE (18:46)
[2018-02-16] MEDS ORDERED: FUROSEMIDE 10 MG/ML 2ML VIAL ONE (19:15)
[2018-02-16] MEDS ORDERED: ACETAMINOPHEN 325 MG TAB PO PRN (20:45)
[2018-02-16] MEDS ORDERED: PANTOPRAZOLE SODIUM 40 MG TABLET.DR PO ONE (21:04)
[2018-02-16 22:25] VITALS: BP 127/84
[2018-02-16] MEDS ORDERED: RIVA20TA PO (23:32)
[2018-02-17] VITALS (7 sets, daily range): BP systolic 111–134; BP diastolic 68–82
[2018-02-17 06:17] LABS: HEMATOCRIT 30.4 % (42-54); MEAN CORPUSCULAR HEMOGLOBIN 29.4 pg (27.0-33.0); MEAN CORPUSCULAR HGB CONC 33.6 g/dL (32.0-36.0); MEAN CORPUSCULAR VOLUME 87.5 fL (79-99); PLATELET COUNT (AUTO) 217 K/uL (130-400); RED BLOOD CELL COUNT(AUTO) 3.47 MIL/uL (4.50-6.20); RED CELL DISTRIBUTION WIDTH 15.1 % (11.0-15.5); WHITE BLOOD COUNT (AUTO) 7.1 K/uL (4.8-10.8)
[2018-02-17 06:34] LABS: ALBUMIN 2.9 g/dL (3.5-5.0); BILIRUBIN,TOTAL 0.6 mg/dL (0.2-1.0); CREATININE 1.5 mg/dL (0.5-1.5); POTASSIUM 4.2 mmol/L (3.5-5.1); TOTAL PROTEIN, SERUM 7.5 g/dL (6.0-8.3)
[2018-02-17] MEDS ORDERED: ENOXAPARIN SODIUM 30 MG/0.3 ML SQ SCH (09:00)
[2018-02-17] MEDS: PANTOPRAZOLE SODIUM 40 MG TABLET.DR PO SCH (09:01)
[2018-02-17] MEDS: FUROSEMIDE 10 MG/ML 4ML VIAL IV SCH (13:22)
[2018-02-17] MEDS: FERROUS SULFATE 325 MG TABLET.DR PO SCH (17:03)
[2018-02-17] MEDS: INSULIN HUMULIN R 100 UNIT/ML 3ML SQ SCH ×2 (17:03→21:45)
[2018-02-17] MEDS: LACTULOSE 20 GM/30 ML UDCUP PO PRN (17:25)
[2018-02-17] MEDS ORDERED: CEFTRIAXONE SODIUM 1 GM IVP SCH (18:00)
[2018-02-17] MEDS ORDERED: AZITHROMYCIN 250 MG TABLET PO SCH (19:00)
[2018-02-17] MEDS: POTASSIUM CHLORIDE 10 MEQ/TAB.SA PO SCH (20:46)
[2018-02-17] MEDS ORDERED: CARVEDILOL 3.125 MG TABLET PO SCH (21:00)
[2018-02-17] MEDS ORDERED: LISINOPRIL 2.5 MG TABLET PO SCH (21:00)
[2018-02-18] MEDS: FUROSEMIDE 10 MG/ML 4ML VIAL IV SCH ×2 (01:34→13:39)
[2018-02-18 03:40] VITALS: BP 125/80
[2018-02-18 06:16] LABS: MEAN CORPUSCULAR HEMOGLOBIN 29.9 pg (27.0-33.0); MEAN CORPUSCULAR HGB CONC 34.5 g/dL (32.0-36.0); MEAN CORPUSCULAR VOLUME 86.5 fL (79-99); PLATELET COUNT (AUTO) 226 K/uL (130-400); RED BLOOD CELL COUNT(AUTO) 3.69 MIL/uL (4.50-6.20); WHITE BLOOD COUNT (AUTO) 7.2 K/uL (4.8-10.8)
[2018-02-18 06:33] LABS: INR 1.12 (0.85-1.15); PARTIAL THROMBOPLASTIN TIME 30.6 SEC (26.3-35.5); PROTHROMBIN TIME 11.7 SEC (9.6-11.6)
[2018-02-18 06:35] LABS: CREATININE 1.5 mg/dL (0.5-1.5); MAGNESIUM 1.8 mg/dL (1.80-2.40); POTASSIUM 3.7 mmol/L (3.5-5.1)
[2018-02-18 07:00] VITALS: BP 111/71
[2018-02-18] MEDS: INSULIN HUMULIN R 100 UNIT/ML 3ML SQ SCH ×4 (07:30→21:00)
[2018-02-18] MEDS ORDERED: LIDOCAINE HCL 1% 20 ML VIAL ONE (08:52)
[2018-02-18] MEDS ORDERED: ATORVASTATIN CALCIUM 40 MG TABLET PO SCH (09:00)
[2018-02-18] MEDS ORDERED: RIVAROXABAN 20 MG TABLET PO SCH (09:00)
[2018-02-18] MEDS ORDERED: MAGNESIUM 2GM PREMIX 50ML 50 ML IV ONE (09:50)
[2018-02-18] MEDS: FERROUS SULFATE 325 MG TABLET.DR PO SCH ×2 (10:00→16:59)
[2018-02-18] MEDS: FOLIC ACID 1 MG TABLET PO SCH (10:00)
[2018-02-18] MEDS: POTASSIUM CHLORIDE 10 MEQ/TAB.SA PO SCH ×2 (10:00→20:43)
[2018-02-18] MEDS: PANTOPRAZOLE SODIUM 40 MG TABLET.DR PO SCH (10:01)
[2018-02-18 11:00] VITALS: BP 114/74
[2018-02-18] MEDS: TAMSULOSIN HCL 0.4 MG CAP.ER.24H PO SCH (13:39)
[2018-02-18 16:00] VITALS: BP 115/65
[2018-02-18 20:00] VITALS: BP 106/66
[2018-02-18 20:40] LABS: APPEARANCE,URINE Cloudy (CLEAR); BILIRUBIN,URINE Negative (NEGATIVE); COLOR,URINE Yellow (YELLOW); GLUCOSE, URINE (UA) Negative (NEGATIVE); KETONES,URINE Negative (NEGATIVE); LEUKOCYTE ESTERASE ,URINE Large (NEGATIVE); NITRATE,URINE Negative (NEGATIVE); OCCULT BLOOD,URINE Large (NEGATIVE); PROTEIN,URINE Negative (NEGATIVE); UROBILINOGEN,URINE 0.2 mg/dL (0.2-1.0)
[2018-02-18] MEDS: LACTULOSE 20 GM/30 ML UDCUP PO PRN (20:43)
[2018-02-18 20:51] LABS: BACTERIA,URINE None Seen /HPF (None Seen); MUCUS,URINE Rare LPF (None Seen); SQUAMOUS EPITHELIAL CELL,UR Few /HPF (0-2)
[2018-02-19 00:13] VITALS: BP 105/69
[2018-02-19] MEDS: FUROSEMIDE 10 MG/ML 4ML VIAL IV SCH ×2 (01:16→12:05)
[2018-02-19 04:00] VITALS: BP 106/62
[2018-02-19 05:11] LABS: BASOPHILS % (AUTO) 0.9 % (0.0-5.0); EOSINOPHILS % (AUTO) 3.2 % (0.0-8.0); HEMATOCRIT 30.1 % (42-54); LYMPHOCYTES % (AUTO) 17.4 % (21.0-51.0); MEAN CORPUSCULAR HGB CONC 34.8 g/dL (32.0-36.0); MEAN CORPUSCULAR VOLUME 86.2 fL (79-99); MONOCYTES % (AUTO) 8.1 % (3.0-13.0); NEUTROPHILS % (AUTO) 70.4 % (40.0-77.0); PLATELET COUNT (AUTO) 224 K/uL (130-400); RED BLOOD CELL COUNT(AUTO) 3.49 MIL/uL (4.50-6.20); RED CELL DISTRIBUTION WIDTH 14.7 % (11.0-15.5); WHITE BLOOD COUNT (AUTO) 8.3 K/uL (4.8-10.8)
[2018-02-19 05:24] LABS: BILIRUBIN,TOTAL 0.6 mg/dL (0.2-1.0); CREATININE 1.5 mg/dL (0.5-1.5); INR 1.09 (0.85-1.15); MAGNESIUM 1.8 mg/dL (1.80-2.40); PARTIAL THROMBOPLASTIN TIME 29.7 SEC (26.3-35.5); PHOSPHORUS 4.7 mg/dL (2.5-4.9); POTASSIUM 3.2 mmol/L (3.5-5.1); PROTHROMBIN TIME 11.4 SEC (9.6-11.6); TOTAL PROTEIN, SERUM 7.7 g/dL (6.0-8.3)
[2018-02-19 05:48] LABS: B-TYPE NATRIURETIC PEPTIDE 894 pg/mL (0-100)
[2018-02-19] MEDS: FERROUS SULFATE 325 MG TABLET.DR PO SCH ×2 (06:08→16:42)
[2018-02-19] MEDS: INSULIN HUMULIN R 100 UNIT/ML 3ML SQ SCH ×4 (06:08→20:19)
[2018-02-19 07:00] VITALS: BP 112/69
[2018-02-19] MEDS: PANTOPRAZOLE SODIUM 40 MG TABLET.DR PO SCH (08:19)
[2018-02-19] MEDS: FOLIC ACID 1 MG TABLET PO SCH (08:20)
[2018-02-19] MEDS: TAMSULOSIN HCL 0.4 MG CAP.ER.24H PO SCH (08:20)
[2018-02-19] MEDS: POTASSIUM CHLORIDE 10 MEQ/TAB.SA PO SCH ×2 (08:21→20:18)
[2018-02-19 11:00] VITALS: BP 102/65
[2018-02-19] MEDS: LACTULOSE 20 GM/30 ML UDCUP PO PRN (14:55)
[2018-02-19] MEDS ORDERED: POTASSIUM CHLORIDE 10% ELIXIR 20 MEQ/15 ML UDCUP PO PRN (15:45)
[2018-02-19] MEDS ORDERED: LIDOCAINE HCL-MPF 1% 2ML VIAL IVP PRN (15:45)
[2018-02-19] MEDS ORDERED: POTASSIUM CHLORIDE 20MEQ/100ML 100 ML IV PRN (15:45)
[2018-02-19] MEDS ORDERED: MAGNESIUM 2GM PREMIX 50ML 50 ML IV PRN (15:45)
[2018-02-19 16:00] VITALS: BP 110/68
[2018-02-19] MEDS: POTASSIUM CHLORIDE 20 MEQ ERTAB PO PRN ×3 (16:41→22:29)
[2018-02-19 20:00] VITALS: BP 115/65
[2018-02-20] VITALS (9 sets, daily range): BP systolic 95–138; BP diastolic 56–89
[2018-02-20] MEDS: FUROSEMIDE 10 MG/ML 4ML VIAL IV SCH ×3 (00:37→23:23)
[2018-02-20 05:33] LABS: POTASSIUM 3.4 mmol/L (3.5-5.1)
[2018-02-20] MEDS: FERROUS SULFATE 325 MG TABLET.DR PO SCH ×2 (06:51→14:55)
[2018-02-20] MEDS: POTASSIUM CHLORIDE 20 MEQ ERTAB PO PRN (06:53)
[2018-02-20] MEDS: INSULIN HUMULIN R 100 UNIT/ML 3ML SQ SCH ×4 (06:54→21:00)
[2018-02-20] MEDS: TAMSULOSIN HCL 0.4 MG CAP.ER.24H PO SCH (07:58)
[2018-02-20] MEDS: FOLIC ACID 1 MG TABLET PO SCH (07:59)
[2018-02-20] MEDS: POTASSIUM CHLORIDE 10 MEQ/TAB.SA PO SCH ×2 (07:59→21:12)
[2018-02-20] MEDS: PANTOPRAZOLE SODIUM 40 MG TABLET.DR PO SCH (07:59)
[2018-02-20] MEDS ORDERED: LIDOCAINE HCL 1% 20 ML VIAL ONE (09:04)
[2018-02-20 12:51] LABS: APPEARANCE BODY FLUID CLEAR (CLEAR); BODY FLUID WBC 201 /cu. mm.; COLOR,BODY FLUID YELLOW (LT YELLOW); SPECIMENTYPE,BODY FLUID THORACENTESIS
[2018-02-20 12:52] LABS: BODY FLUID RBC 224 /cu. mm.; TOTAL VOLUME,BODY FLUID 1000 mL
[2018-02-20 12:54] LABS: BF LYMPHOCYTE 13 %; BF MESOTHELIAL 69 %; BF MONOCYTE 1 %
[2018-02-21 03:45] VITALS: BP 98/63
[2018-02-21 04:35] LABS: HEMATOCRIT 33.4 % (42-54); MEAN CORPUSCULAR HEMOGLOBIN 29.1 pg (27.0-33.0); MEAN CORPUSCULAR HGB CONC 33.9 g/dL (32.0-36.0); MEAN CORPUSCULAR VOLUME 85.9 fL (79-99); NUCLEATED RED BLOOD CELLS 0.1 % (0.0-0.19); PLATELET COUNT (AUTO) 221 K/uL (130-400); RED BLOOD CELL COUNT(AUTO) 3.89 MIL/uL (4.50-6.20); RED CELL DISTRIBUTION WIDTH 14.7 % (11.0-15.5); WHITE BLOOD COUNT (AUTO) 9.2 K/uL (4.8-10.8)
[2018-02-21 04:56] LABS: BILIRUBIN,TOTAL 0.8 mg/dL (0.2-1.0); CREATININE 1.6 mg/dL (0.5-1.5); POTASSIUM 3.2 mmol/L (3.5-5.1); TOTAL PROTEIN, SERUM 8.1 g/dL (6.0-8.3)
[2018-02-21 05:12] LABS: BAND NEUTROPHILS % (MANUAL) 1 % (0-2); EOSINOPHILS % (MANUAL) 5 % (1-6); LYMPHOCYTES % (MANUAL) 27 % (22-44); MAN.DIFF COMMENT-IMPRESSION MANUAL DIFFERENTIAL; MONOCYTES % (MANUAL) 1 % (2-9); PLATELET MORPHOLOGY COMMENT ADEQUATE; REACTIVE LYMPHOCYTES 1 % (0-0); SEGMENTED NEUTROPHILS % 65 % (40-70)
[2018-02-21] MEDS: INSULIN HUMULIN R 100 UNIT/ML 3ML SQ SCH ×3 (06:02→16:44)
[2018-02-21] MEDS: FERROUS SULFATE 325 MG TABLET.DR PO SCH ×2 (06:03→16:39)
[2018-02-21] MEDS: POTASSIUM CHLORIDE 20 MEQ ERTAB PO PRN ×2 (06:04→10:44)
[2018-02-21 08:25] VITALS: BP 107/68
[2018-02-21] MEDS: POTASSIUM CHLORIDE 10 MEQ/TAB.SA PO SCH (09:56)
[2018-02-21] MEDS: FOLIC ACID 1 MG TABLET PO SCH (09:56)
[2018-02-21] MEDS: PANTOPRAZOLE SODIUM 40 MG TABLET.DR PO SCH (09:56)
[2018-02-21] MEDS: TAMSULOSIN HCL 0.4 MG CAP.ER.24H PO SCH (09:56)
[2018-02-21] MEDS: LACTULOSE 20 GM/30 ML UDCUP PO PRN (10:43)
[2018-02-21 12:03] VITALS: BP 139/91
[2018-02-21] MEDS: FUROSEMIDE 10 MG/ML 4ML VIAL IV SCH (13:21)
[2018-02-21] MEDS ORDERED: LEVOFLOXACIN 500 MG/D5W 100 ML 100 ML IV SCH (15:00)
[2018-02-21 16:33] VITALS: BP 111/65
[2018-02-21] MEDS ORDERED: TAMS-1 PO (17:10)
[2018-02-21] MEDS ORDERED: LEVO500T2 PO (18:14)
== END 2018-02-21 18:45 | disposition home or self-care (01) | DRG 292 ==
LOC: EDH 17:21 → OBSVTOIN 19:47 → EDHIP 19:47 → INTOOBSV 19:47 → 3CH 22:13
PROVIDERS: ADMIT Internal Medicine Pulmonary Disease; ATTEND Internal Medicine Pulmonary Disease
PROC: 0W993ZZ Drainage of Right Pleural Cavity, Percutaneous Approach (ICD-10-PCS; principal; 2018-02-20)
DX: I11.0 Hypertensive heart disease with heart failure (principal); E44.0 Moderate protein-calorie malnutrition; N13.30 Unspecified hydronephrosis; J90 Pleural effusion, not elsewhere classified; J98.11 Atelectasis; I25.10 Atherosclerotic heart disease of native coronary artery without angina pectoris; I50.43 Acute on chronic combined systolic (congestive) and diastolic (congestive) heart failure; E66.9 Obesity, unspecified; E11.9 Type 2 diabetes mellitus without complications; N40.0 Benign prostatic hyperplasia without lower urinary tract symptoms; K59.00 Constipation, unspecified; Z95.1 Presence of aortocoronary bypass graft; I25.2 Old myocardial infarction; Z87.891 Personal history of nicotine dependence; Z83.3 Family history of diabetes mellitus; Z82.49 Family history of ischemic heart disease and other diseases of the circulatory system; Z79.899 Other long term (current) drug therapy; Z68.23 Body mass index [BMI] 23.0-23.9, adult
CPT/HCPCS: 32555; 36415; 71045; 74176; 76705; 76770; 80048; 80053; 81001; 82550; 82948; 83605; 83615; 83735; 83880; 83986; 84100; 84132; 84153; 84157; 84484; 85025; 85027; 85610; 85730; 87040; 87071; 87088; 87116; 87205; 87206; 87804; 88108; 88305; 89051; 93005; 99291; A4344; J0696; J1650; J1815; J1940; J1956; J3475

== ENCOUNTER → 2018-03-29 | Outpatient (CLI) | payer OTHER, MEDICARE ==
[~2018-03-29] MED LIST changes: +LEVO500T2 PO; +RIVA20TA PO; +TAMS-1 PO
== END | disposition home or self-care (01) ==
LOC: LAB 08:03
PROVIDERS: ATTEND Urology
DX: N40.1 Benign prostatic hyperplasia with lower urinary tract symptoms (principal)
CPT/HCPCS: 36415; 84153; 84154

== ENCOUNTER → 2018-04-19 | Outpatient (CLI) | payer OTHER, MEDICARE | END | disposition home or self-care (01) | LOC: OIH 09:35 | PROVIDERS: ATTEND Urology | DX: N40.1 Benign prostatic hyperplasia with lower urinary tract symptoms (principal); J90 Pleural effusion, not elsewhere classified; J98.11 Atelectasis | CPT/HCPCS: 74176 ==

== ENCOUNTER 2023-05-31 23:08 | Emergency (ER) | payer OTHER, MEDICARE ==
[~2023-05-31] VITALS: Ht 162.6 cm; Wt 75.7 kg
[~2023-05-31 23:08] MED LIST changes: +CLOP-31 PO; -CLOP75TA14 PO; +LISI2.5T13 PO; -LISI2.5T2 PO
[2023-06-01 00:46] LABS: POTASSIUM 4.1 mmol/L (3.5-5.1)
[2023-06-01 00:50] LABS: BILIRUBIN,TOTAL 1.3 mg/dL (0.2-1.0); HEMATOCRIT 39.9 % (42-54); IMMATURE GRANULOCYTE ABSOLUTE 0.01 K/uL (0-1); LYMPHOCYTES # (AUTO) 0.6 K/uL (1.0-4.8); LYMPHOCYTES % (AUTO) 10.6 % (21.0-51.0); MEAN CORPUSCULAR HEMOGLOBIN 28.5 pg (27.0-33.0); MEAN CORPUSCULAR HGB CONC 34.3 g/dL (32.0-36.0); MONOCYTES # (AUTO) 0.3 K/uL (0.1-1.0); MONOCYTES % (AUTO) 6.5 % (3.0-13.0); NEUTROPHILS # (AUTO) 4.3 K/uL (1.8-7.7); NEUTROPHILS % (AUTO) 82.7 % (40.0-77.0); PLATELET COUNT (AUTO) 131 K/uL (130-400); RED BLOOD CELL COUNT(AUTO) 4.81 MIL/uL (4.50-6.20); RED CELL DISTRIBUTION WIDTH 15.5 % (11.0-15.5); TOTAL PROTEIN, SERUM 7.5 g/dL (6.0-8.3); WHITE BLOOD COUNT (AUTO) 5.2 K/uL (4.8-10.8)
[2023-06-01 00:55] LABS: B-TYPE NATRIURETIC PEPTIDE 1250 pg/mL (0-100)
[2023-06-01 01:24] VITALS: BP 143/68; PULSE 80; RESP 18; O2SAT 98
== END 2023-06-01 01:30 | disposition home or self-care (01) ==
LOC: EDH 23:08
DX: R53.1 Weakness (principal); I13.0 Hypertensive heart and chronic kidney disease with heart failure and stage 1 through stage 4 chronic kidney disease, or unspecified chronic kidney disease; E11.22 Type 2 diabetes mellitus with diabetic chronic kidney disease; N18.9 Chronic kidney disease, unspecified; I50.9 Heart failure, unspecified; D64.9 Anemia, unspecified; E11.65 Type 2 diabetes mellitus with hyperglycemia; E79.89 Other specified disorders of purine and pyrimidine metabolism; E87.1 Hypo-osmolality and hyponatremia; E78.00 Pure hypercholesterolemia, unspecified; N40.0 Benign prostatic hyperplasia without lower urinary tract symptoms; I25.10 Atherosclerotic heart disease of native coronary artery without angina pectoris; Z79.01 Long term (current) use of anticoagulants; Z79.02 Long term (current) use of antithrombotics/antiplatelets; Z79.82 Long term (current) use of aspirin; Z79.899 Other long term (current) drug therapy; Z95.1 Presence of aortocoronary bypass graft
CPT/HCPCS: 36415; 80053; 83880; 84484; 85025; 93005

== ENCOUNTER → 2024-01-02 | Outpatient (CLI) | payer MEDICARE ==
[~2024-01-02] MED LIST changes: -ASPI-1005 PO; -ATOR40TA69 PO; -CARV6.2579 PO; -CLOP-31 PO; -FAMO20TA8 PO; -FERR324T4 PO; -FOLI1TAB15 PO; -FURO40TA7 PO; -FURO80TA3 PO; -LEVO500T2 PO; -LISI2.5T13 PO; -POTA10TA14 PO; -TAMS-1 PO
== END | disposition home or self-care (01) ==
LOC: SHCH 10:56
PROVIDERS: ATTEND Internal Medicine Cardiovascular Disease
DX: I25.5 Ischemic cardiomyopathy (principal)
CPT/HCPCS: 93306

== ENCOUNTER 2024-03-16 13:30 | Emergency (ER) | payer MEDICARE ==
[~2024-03-16] VITALS: Ht 162.6 cm; Wt 76.2 kg
[2024-03-16 14:17] LABS: APPEARANCE,URINE TURBID (CLEAR); BILIRUBIN,URINE NEGATIVE (NEGATIVE); COLOR,URINE LIGHT-ORANGE (YELLOW); GLUCOSE, URINE (UA) NEGATIVE (NEGATIVE); KETONES,URINE NEGATIVE (NEGATIVE); LEUKOCYTE ESTERASE ,URINE 500 Leu/uL (NEGATIVE); NITRATE,URINE NEGATIVE (NEGATIVE); OCCULT BLOOD,URINE MODERATE (NEGATIVE); PH,URINE 7.5 (5.0-8.0); PROTEIN,URINE 70 mg/dL (NEGATIVE); UROBILINOGEN,URINE 0.2 mg/dL (0.2-1.0)
[2024-03-16 14:23] LABS: ADD UA MICROSCOPIC YES
[2024-03-16 14:25] LABS: BACTERIA,URINE FEW /HPF (None Seen); MUCUS,URINE RARE LPF (None Seen); RBC,URINE 51-100 /HPF (0-1); UNCLASSIFIED CRYSTAL 2 /HPF (None Seen); WBC CLUMP RARE /HPF (0-1); WBC,URINE >100 /HPF (0-1); YEAST,URINE BUDDING FEW /HPF (None Seen)
[2024-03-16] MEDS: cefTRIAXone 1G VIAL IVPB STA (15:18)
[2024-03-16] MEDS ORDERED: SULF1TAB42 PO (15:28)
--- NOTE | 2024-03-16 15:28 | ERN ---
ED Note History of Present Illness Stated Complaint: ABEBE CATHETER PROBLEM Chief Complaint: Catheter Change Time Seen by MD: 13:34 Time Seen by Midlevel: 13:40 Dictation: 79-year-old male coming in for a Abebe exchange, states has decreased urine outp ut and that usually happens when he needs to change his Abebe. Last time it was changed from one month ago. Patient states he gets his Abebe was changed every month. Denies having any flank pain, back pain, fever, nausea, vomiting, or diarrhea. Allergies: Coded Allergies: No Known Drug Allergies (Verified Allergy, Unknown, 08/29/17) Home Meds Active Scripts Sulfamethoxazole/Trimethoprim (Bactrim Ds Tablet) 800 Mg-160 Mg Tablet, 1 TAB PO BID for 7 Days, #14 TAB 0 Refills Prov:ALISA PÉREZ DRAWER IN STITCH BONDING MACHINE 03/16/24 Reported Medications Rivaroxaban (Xarelto) 20 Mg Tablet, 20 MG PO DAILY, TAB 02/16/18 Past Medical History Past Medical History: CAD, Diabetes-Type II, High Cholesterol, Heart Disease, Hypertension Additional Past Medical Hx: ABEBE CATHETER Surgical History: CABG Family History: CAD, DM, HTN Social History: ETOH, Lives with family Review of System Dictation Constitutional: Negative for fever,chills, and weight loss Eyes: Negative for injury, pain,redness, and discharge ENT: Negative for injury,pain or swelling Cardiovascular: Negative for chest pain, palpitations, and edema Respiratory: Negative for shortness of breath, cough, and wheezing, Abdomen/GI: Negative for abdominal pain, nausea, vomiting, diarrhea, and constipation Back: Negative for injury and pain : Negative for injury, bleeding and discharge once Abebe catheter exchange MS/Extremity: Negative for injury and deformity Skin: Negative for rash, and discoloration Neuro: Negative for headache, weakness, numbness, tingling, and seizure Psych: Negative for suicide ideation, homicidal ideation, and hallucinations Review of Systems: was completed Initial Vital Sign VS Vital Signs Date Time Temp Pulse Resp B/P (MAP) Pulse Ox O2 Delivery O2 Flow Rate FiO2 03/16/24 13:31 98.2 80 18 161/83 97 0 Physical Exam Dictation General: awake, alert, NAD Head/Face: Normocephalic, atraumatic Eyes: PERRL, EOMI, vision at baseline ENT: oral cavity clear, TMs clear, no signs of infection Neck: Trachea midline, supple, no nuchal rigidity Cardiovascular: RRR, normal S1/S2, No MRGs, no JVD Respiratory: CTAB, no respiratory distress, No rales or wheezes Abdomen: Soft, non-tender, non-distended, normal bowel sounds, no guarding or rebound. Skin: Warm, dry, normal turgor, no rash MS/Extremity: Pulses equal, no cyanosis, neurovascular intact, FROM Neuro: COAx4, GCS 15, strength 5/5, CN 2-12 intact, normal cerebellar exam, normal gait, Psych: Normal behavior, mood, and affect normal Results (Laboratory/Radiology) Laboratory/Radiology Laboratory Tests Test 03/16/24 14:09 Urine Color LIGHT-ORANGE (YELLOW) Urine Appearance TURBID (CLEAR) Urine pH 7.5 (5.0-8.0) Urine Specific [place] 1.014 (1.001-1.031) Urine Protein 70 mg/dL (NEGATIVE) H Urine Glucose (UA) NEGATIVE mg/dL (NEGATIVE) Urine Ketones NEGATIVE mg/dL (NEGATIVE) Urine Occult Blood MODERATE (NEGATIVE) H Urine Nitrate NEGATIVE (NEGATIVE) Urine Bilirubin NEGATIVE mg/dL (NEGATIVE) Urine Urobilinogen 0.2 mg/dL (0.2-1.0) Urine Leukocyte Esterase 500 Karlie/uL (NEGATIVE) H Urine RBC 51-100 /HPF (0-1) H Urine WBC >100 /HPF (0-1) H Urine WBC Clumps (Auto) RARE /HPF (0-1) Urine Other Crystals (Auto) 2 /HPF (None Seen) Urine Bacteria FEW /HPF (None Seen) Urine Yeast FEW /HPF (None Seen) Labs Reviewed?: Yes ED Course ED Course Orders Procedure Category Date Status Time *Nursing CPOE 03/16/24 Transmitted Communication: 14:03 Urinalysis Profile LAB 03/16/24 Complete 14:03 Culture Urine IVET 03/16/24 In Process 14:23 Nurse Driven Abebe ALMA 03/16/24 In Process Removal Pro 14:38 Ceftriaxone 1g Vial PHA 03/16/24 Complete (Rocephine 1g Inj) 15:12 Current Medications Medications (Trade) Dose Ordered Sig/Niko Route PRN Reason Start Time Stop Time Status Last Admin Dose Admin Ceftriaxone Sodium (ROCEphine 1G INJ) 1 gm ONCE STAT IVPB 03/16/24 15:12 03/16/24 15:13 DC 03/16/24 15:18 Vital Signs Date Time Temp Pulse Resp B/P (MAP) Pulse Ox O2 Delivery O2 Flow Rate FiO2 03/16/24 13:31 98.2 80 18 161/83 97 0 Medical Decision Making MDM MDM: 79-year-old male coming in for a Abebe exchange, states has decreased urine output and that usually happens when he needs to change his Abebe. Last time it was changed from one month ago. Patient states he gets his Abebe was changed every month. Denies having any flank pain, back pain, fever, nausea, vo miting, or diarrhea. Mild tenderness to palpation to the suprapubic area. UA shows evidence of urinary tract infection, Rocephin given here in the ER and sent home on Bactrim. After Abebe exchange there was about 1000 mL of urine in the catheter, patient felt relief , in his wishing to be discharged home. Educated to follow up with PCP in 1-2 days and to return to the ER if symptoms worsen. Differential diagnosis: Urinary tract infection, Abebe obstruction, Abebe dislodgement Rationale: Tests considered and ordered secondary to shared decision making include: Previous outside records reviewed: Old ER visits. Risk of complication and/or morbidity or mortality of patient management: None Medications-Per medication reconciliation Need for hospitalization: Patient does not meet criteria for hospitalization. Need for emergency major/minor surgery: No There are no social concerns with this patient. Prescription drug management Prescriptions will include symptomatic care Patient's prior external medical records from other ER visits were reviewed by me as indicated. Prior testing and results from previous visits were reviewed. Prior tests were taken into account with medical decision making and resource utilization, independent historian/historians were used to obtain complete medical history. I independently interpreted the test that were performed, results were reviewed by me and considered findings on radiology if ordered. Medical management and examination interpretation discussions were had by me with other qualified healthcare professionals as indicated for the patient's care. DX & DISP Disposition: Discharge Departure Impression: Primary Impression: Urinary tract infection Condition: Stable Scripts Sulfamethoxazole/Trimethoprim (Bactrim Ds Tablet) 800 Mg-160 Mg Tablet 1 TAB PO BID for 7 Days, #14 TAB 0 Refills Prov: ALISA PÉREZ DRAWER IN STITCH BONDING MACHINE 03/16/24 Additional Instructions: Porfavor de seguri con myers doctor familiar in 1-2 finch, o regresar si los simptomas empeoran Referrals: BERTO HAM MD (PCP) Time of Disposition: 15:28 I have reviewed the case, and I agree with ALISA PÉREZ NP Mar 16, 2024 15:28
[2024-03-16 15:34] VITALS: BP 141/74; PULSE 78; RESP 18; TEMP 98.8; O2SAT 97
== END 2024-03-16 15:36 | disposition home or self-care (01) ==
LOC: EDH 13:30
DX: T83.098A Other mechanical complication of other urinary catheter, initial encounter (principal); N39.0 Urinary tract infection, site not specified; E11.9 Type 2 diabetes mellitus without complications; E78.00 Pure hypercholesterolemia, unspecified; I11.9 Hypertensive heart disease without heart failure; I25.10 Atherosclerotic heart disease of native coronary artery without angina pectoris; Z79.01 Long term (current) use of anticoagulants; Z95.1 Presence of aortocoronary bypass graft; Y84.6 Urinary catheterization as the cause of abnormal reaction of the patient, or of later complication, without mention of misadventure at the time of the procedure
CPT/HCPCS: 99284; 96374; 87086 ×2; 87186; 81001; 51702; J0696

== ENCOUNTER 2024-04-26 08:48 | Emergency (ER) | payer MEDICARE ==
[~2024-04-26] VITALS: Ht 160 cm; Wt 74.8 kg
[~2024-04-26 08:48] MED LIST changes: +SULF1TAB42 PO
--- NOTE | 2024-04-26 09:18 | ERN ---
General Chief Complaint: Urinary Catheter Problems Stated Complaint: URINARY PROBLEM Time Seen by MD: 08:50 Source: patient History of Present Illness Initial Comments Patient is a 79-year-old gentleman coming in for Abebe exchange. He states that the Abebe has been there for one month. He states that overall the Abebe has been there for one year for the last 10 leg seizure was a month ago. He also states that he was not seen his urologist Dr. Ford. Patient solid complaint is that his nails are too long in his feet. He states that they has been too long for about a month and a half. Allergies: Coded Allergies: No Known Drug Allergies (Verified Allergy, Unknown, 08/29/17) Home Meds Active Scripts Sulfamethoxazole/Trimethoprim (Bactrim Ds Tablet) 800 Mg-160 Mg Tablet, 1 TAB PO BID for 7 Days, #14 TAB 0 Refills Prov:ALISA PÉREZ NP 03/16/24 Reported Medications Rivaroxaban (Xarelto) 20 Mg Tablet, 20 MG PO DAILY, TAB 02/16/18 Past Medical History Past Medical History: Diabetes-Type II, High Cholesterol, Hypertension Medical History Other: ABEBE CATHETER Past Surgical History: CABG Family History Family History: CAD, DM, HTN Social History Social History: ETOH, Lives with family ROS Dictation CONSTITUTIONAL: No chills, no fever, no weakness, no diaphoresis, no malaise. HEAD/FACE: No signs of trauma. EENT: No eye pain, no blurred vision, no tearing, no double vision, no ear p ain, no ear discharge, no nose pain, no nasal congestion, no throat pain, no throat swelling, no mouth pain. RESPIRATORY: No cough, no orthopnea, no SOB, no stridor, no wheezing. CARDIOVASCULAR: No chest pain, no edema, no palpitations, no syncope. GASTROINTESTINAL/ABDOMINAL: No abdominal pain, no constipation, no diarrhea, no nausea, no vomiting. GENITOURINARY: No abnormal discharge, no dysuria, no frequent urination, no hematuria. No complaints of pain in the genitals. MUSCULOSKELETAL: No back pain, no gout, no joint pain, no joint swelling, no muscle pain, no muscle stiffness, no neck pain. INTEGUMENTARY: No change in color, no change in hair/nails, no dryness, no lesion, no lumps, no rash. NEUROLOGICAL/PSYCH: No anxiety, not depressed, no emotional problem, no headache, no numbness, no pre-existing deficit, no history of seizures, no tremors, no weakness. HEMATOLOGIC/LYMPHATIC: Not anemic, no history of blood clots, no apparent bleeding, no bruising, glands not swollen. All Systems Negative, Except as Noted. Physical Exam Physical Exam Dictation VITAL SIGNS: Reviewed. GENERAL APPEARANCE: Alert, oriented x3, no acute distress, obese. HEAD AND FACE: Non-traumatic. EYES: PERRL, pink conjunctivas, eyelid no trauma, anterior chamber clear. EARS: Pinnas intact and no signs of trauma or erythema. Ear canals clear and no discharge. TMs no erythema. NOSE: No discharge, no bleeding. OROPHARYNX: Mouth normal, teeth no caries, tongue pink. Pharynx clear, no erythema. Tonsils no exudates, no abscesses noted. Mucous membrane moist. NECK: Supple, non-tender, no thyromegaly, no masses, no JVD, no bruits. BREAST: Deferred. CHEST: No tenderness, no crepitus, no paradoxical movement, no retractions. LUNGS: Clear, well-ventilated, symmetric, no rales, no wheezing, no rhonchi, no stridor, good breath sounds bilaterally. HEART: Regular rate, regular rhythm, no murmur, no gallops. VASCULAR: No peripheral edema. ABDOMEN: Soft, positive bowel sounds, nondistended, no guarding, nontender, no rebound, no masses no hepatomegaly, no splenomegaly, no Fernandes's sign, no hernias. RECTAL: Deferred. GENITAL: Deferred. NEUROLOGICAL: Normal speech, gross motor function intact, gross sensory function intact. MUSCULOSKELETAL: Neck nontender, full range of motion, back nontender, full range of motion. EXTREMITIES: Nontender, full range of motion. SKIN: Color pink, dry, no turgor, no rash, no lacerations, no abrasions, no contusions. LYMPHATICS: Deferred. Results Laboratory and Microbiology Labs Reviewed?: Yes MDM MDM: Differential diagnosis: Chronic indwelling Abebe, BPH Patient is a 79-year-old gentleman coming in to be evaluated for Abebe exchange. States that he was had the Abebe in place for about a year and a half but last time he had exchanged was upon a month ago. He was no other complaint except long toenails. Abebe has been exchanged no issues presented. ED Course Orders Procedure Category Date Status Time Nurse Driven Gabriele MARQUEZ 04/26/24 In Process Removal Pro 09:12 Vital Signs Date Time Temp Pulse Resp B/P (MAP) Pulse Ox O2 Delivery O2 Flow Rate FiO2 04/26/24 08:52 97.7 88 18 147/72 98 Room Air 0 Procedure Dictation Left foot great toe ingrown toenail, cleaned sterilized and anesthetized using lidocaine 1% 5 mL bilateral digital block. Good anesthesia achieved. Using needle quinteros nail was pulled out and cut hemostasis obtained with pressure. Patient tolerated procedure well. DX & DISP Disposition: Discharge Departure Impression: Primary Impression: Chronic indwelling Abebe catheter Additional Impression: Ingrown toenail Condition: Stable Scripts Sulfamethoxazole/Trimethoprim (Bactrim Ds Tablet) 800 Mg-160 Mg Tablet 1 TAB PO BID for 10 Days, #20 TAB 0 Refills Prov: JERALD SHERIFF MD 04/26/24 Cephalexin Monohydrate (Keflex) 500 Mg Cap 1 CAP PO TID for 10 Days, #30 CAP 0 Refills Prov: JERALD SHERIFF MD 04/26/24 Additional Instructions: FOLLOW-UP WITH PRIMARY CARE PROVIDER IN 1 TO 2 DAYS. TAKE MEDICATIONS DIRECTED HERE IN THE EMERGENCY ROOM. OKAY TO CONTINUE HOME MEDICATIONS UNLESS OTHERWISE DISCUSSED DURING YOUR VISIT IN THE EMERGENCY ROOM TODAY. RETURN TO YOUR NEAREST EMERGENCY ROOM IF SYMPTOMS WORSEN OR IF THERE IS NO IMPROVEMENT. CALL 911 IF YOU NEED IMMEDIATE ASSISTANCE. TAKE TYLENOL [id number] NEEDED AND IF NO CONTRAINDICATIONS ARE PRESENT. INCREASE ORAL HYDRATION. A WOUND CULTURE OR URINE CULTURE WAS ORDERED HERE IN THE EMERGENCY ROOM DEPARTMENT PLEASE FOLLOW-UP WITH PRIMARY CARE PROVIDER AND ADVISE THEM TO GET REPEAT PORTS FROM OUR FACILITY. IF YOU HAD ANY RITESH WRAP/SPLINTS THAT WERE APPLIED HERE, PLEASE DO NOT REMOVE THEM UNTIL YOU SEE YOUR PRIMARY CARE OR SPECIALTY. Referrals: Referrals: BERTO HAM MD (PCP) CHRISTIANO ZAYAS DPM Time of Disposition: 09:27 JERALD SHERIFF MD Apr 26, 2024 09:18
[2024-04-26] MEDS ORDERED: SULF1TAB42 PO (09:28)
[2024-04-26] MEDS ORDERED: CEPH500B PO (09:28)
[2024-04-26 09:31] VITALS: BP 132/65; PULSE 74; RESP 20; TEMP 98.8; O2SAT 98
== END 2024-04-26 09:47 | disposition home or self-care (01) ==
LOC: EDH 08:48
DX: T83.9XXA Unspecified complication of genitourinary prosthetic device, implant and graft, initial encounter (principal); L60.0 Ingrowing nail; E11.9 Type 2 diabetes mellitus without complications; E78.00 Pure hypercholesterolemia, unspecified; I10 Essential (primary) hypertension; Z79.01 Long term (current) use of anticoagulants; Z95.1 Presence of aortocoronary bypass graft; Y82.9 Unspecified medical devices associated with adverse incidents; Y92.89 Other specified places as the place of occurrence of the external cause
CPT/HCPCS: 11730; 51702; 99284

== ENCOUNTER 2024-05-09 14:47 | Emergency (ER) | payer MEDICARE ==
[~2024-05-09] VITALS: Ht 162.6 cm; Wt 76.2 kg
[~2024-05-09 14:47] MED LIST changes: +CEPH500B PO
[2024-05-09 15:24] VITALS: BP 132/78; PULSE 84; RESP 20; TEMP 98.8; O2SAT 98
--- NOTE | 2024-05-09 15:39 | ERN ---
General Chief Complaint: Urinary Catheter Problems Stated Complaint: CATHETER Time Seen by MD: 15:04 Time Seen by Midlevel: 15:04 Source: patient History of Present Illness Initial Comments Patient is a 79-year-old male with a past medical history of urinary retention presenting to the emergency department for a Abebe catheter evaluation. Patient states his Abebe catheter became clogged today and decided to report to the ER for further evaluation. Patient has no other concerns at this time and only wants his Abebe catheter replaced. Allergies: Coded Allergies: No Known Drug Allergies (Verified Allergy, Unknown, 08/29/17) Home Meds Active Scripts Sulfamethoxazole/Trimethoprim (Bactrim Ds Tablet) 800 Mg-160 Mg Tablet, 1 TAB PO BID for 10 Days, #20 TAB 0 Refills Prov:JERALD SHERIFF MD 04/26/24 Cephalexin Monohydrate (Keflex) 500 Mg Cap, 1 CAP PO TID for 10 Days, #30 CAP 0 Refills Prov:JERALD SHERIFF MD 04/26/24 Sulfamethoxazole/Trimethoprim (Bactrim Ds Tablet) 800 Mg-160 Mg Tablet, 1 TAB PO BID for 7 Days, #14 TAB 0 Refills Prov:ALISA PÉREZ NP 03/16/24 Reported Medications Rivaroxaban (Xarelto) 20 Mg Tablet, 20 MG PO DAILY, TAB 02/16/18 Past Medical History Past Medical History: Diabetes-Type II, Hypertension, Prostatitis Medical History Other: ABEBE CATHETER Past Surgical History: CABG Family History Family History: CAD, DM, HTN Social History Social History: ETOH, Lives with family ROS Dictation CONSTITUTIONAL: Negative except for HPI HEAD/FACE: Negative except for HPI EENT: Negative except for HPI RESPIRATORY: Negative except for HPI GASTROINTESTINAL/ABDOMINAL: Negative except for HPI GENITOURINARY: Negative except for HPI MUSCULOSKELETAL: Negative except for HPI INTEGUMENTARY: Negative except for HPI NEUROLOGICAL/PSYCH: Negative except for HPI HEMATOLOGIC/LYMPHATIC: Negative except for HPI All Systems Negative, Except as noted above. 13 point review of systems assessed and all negative except for above. Physical Exam Physical Exam Dictation Vital Signs reviewed General Appearance: Alert, oriented x 3, no acute distress, well developed, nourished. Head and Face: non-traumatic. Eyes: PERRL, pink conjunctivas, eyelid no trauma, anterior chamber with arcus senilis. Ears: Pinnas intact and no signs of trauma or erythema ear canals clear and no discharge TM no erythema Nose: No discharge, no bleeding. Oropharynx: Mouth normal, tongue pink, pharynx clear,no erythema, tonsils no exudates, no abscesses noted, mucous membrane moist Neck: Supple, non-tender, no thyromegaly, no masses, no JVD, no bruits Breast:Deferred Chest:No tenderness, no crepitus, no paradoxical movement, no retractions Lungs:Clear, well-ventilated, symmetric, no rales, no wheezing, no rhonchi, no stridor, good breath sounds bilaterally Heart: Regular rate, regular rhythm, no murmur, no gallops Vascular: no peripheral edema, Abdomen: Soft, positive bowel sounds, nondistended, no guarding, nontender, no rebound, no masses no hepatomegaly, no splenomegaly, no Fernandes's sign, no hernias. Rectal: Deferred Genital: Deferred Neurological: Normal speech, motor function intact, sensory function intact Musculoskeletal: Neck nontender, full range of motion, back nontender, full range of motion, Extremities: nontender, full range of motion Skin: Color pink, dry, no turgor, no rash, no lacerations, no abrasions, no contusions. Lymphatic: Deferred MDM MDM: Patient presenting for a Abebe catheter evaluation. Catheter was replaced in the ER with no complications. Patient will be following up outpatient with primary care doctor and Urology. Differential diagnosis: Abebe catheter evaluation, obstructive Abebe catheter, There are no social concerns with this patient. Prescription drug management Prescriptions will include: None Medical management and examination interpretation discussions were had by wv wi th other qualified healthcare professionals as indicated for the patient's care. ED Course Vital Signs Date Time Temp Pulse Resp B/P (MAP) Pulse Ox O2 Delivery O2 Flow Rate FiO2 05/09/24 15:24 98.8 84 20 132/78 98 Room Air* 0 21 05/09/24 14:56 98.8 76 20 141/64 99 Room Air 0 DX & DISP Disposition: Discharge Departure Impression: Primary Impression: Obstructed Abebe catheter Condition: Stable Referrals: BERTO HAM MD (PCP) NICK ALANIZ MD Time of Disposition: 15:36 I have reviewed the case, and I agree with, Diagnosis and Plan I performed the substantive portion of the visit. I have reviewed and personally made and approve the management plan that is documented in the note by myself or the NIDA. I acknowledge for responsibility for the patient's management plan. BERTO JUAREZ May 09, 2024 15:39
== END 2024-05-09 15:50 | disposition home or self-care (01) ==
LOC: EDH 14:47
DX: T83.098A Other mechanical complication of other urinary catheter, initial encounter (principal); E11.9 Type 2 diabetes mellitus without complications; I10 Essential (primary) hypertension; Z79.01 Long term (current) use of anticoagulants; Z95.1 Presence of aortocoronary bypass graft; Y82.8 Other medical devices associated with adverse incidents; Y92.89 Other specified places as the place of occurrence of the external cause
CPT/HCPCS: 51702; 99284

== ENCOUNTER 2024-10-10 06:12 | Emergency (ER) | payer MEDICARE ==
[~2024-10-10] VITALS: Ht 162.6 cm; Wt 72.6 kg
--- NOTE | 2024-10-10 07:29 | ERN ---
General Chief Complaint: Urinary Catheter Problems Stated Complaint: ABEBE REPLACEMENT Time Seen by MD: 07:19 Source: patient History of Present Illness Initial Comments Patient is a 79-year-old male coming in to be evaluated for urine retention. Patient states that he has a year with a urine catheter on and off.. He has been having suprapubic discomfort and has a noticed the urine stream has slow down. Allergies: Coded Allergies: No Known Drug Allergies (Verified Allergy, Unknown, 08/29/17) Home Meds Active Scripts Sulfamethoxazole/Trimethoprim (Bactrim Ds Tablet) 800 Mg-160 Mg Tablet, 1 TAB PO BID for 10 Days, #20 TAB 0 Refills Prov:JERALD SHERIFF MD 04/26/24 Cephalexin Monohydrate (Keflex) 500 Mg Cap, 1 CAP PO TID for 10 Days, #30 CAP 0 Refills Prov:JERALD SHERIFF MD 04/26/24 Sulfamethoxazole/Trimethoprim (Bactrim Ds Tablet) 800 Mg-160 Mg Tablet, 1 TAB PO BID for 7 Days, #14 TAB 0 Refills Prov:ALISA PÉREZ NP 03/16/24 Reported Medications Rivaroxaban (Xarelto) 20 Mg Tablet, 20 MG PO DAILY, TAB 02/16/18 Past Medical History Past Medical History: Diabetes-Type II Medical History Other: ABEBE CATHETER Past Surgical History: CABG Family History Family History: CAD, DM, HTN Social History Social History: ETOH, Lives with family ROS Dictation CONSTITUTIONAL: No chills, no fever, no weakness, no diaphoresis, no malaise. HEAD/FACE: No signs of trauma. EENT: No eye pain, no blurred vision, no tearing, no double vision, no ear pain, no ear discharge, no nose pain, no nasal congestion, no throat pain, no throat swelling, no mouth pain. RESPIRATORY: No cough, no orthopnea, no SOB, no stridor, no wheezing. CARDIOVASCULAR: No chest pain, no edema, no palpitations, no syncope. GASTROINTESTINAL/ABDOMINAL: abdominal pain, no constipation, no diarrhea, no nausea, no vomiting. GENITOURINARY: No abnormal discharge, no dysuria, no frequent urination, no he maturia. No complaints of pain in the genitals. MUSCULOSKELETAL: No back pain, no gout, no joint pain, no joint swelling, no m uscle pain, no muscle stiffness, no neck pain. INTEGUMENTARY: No change in color, no change in hair/nails, no dryness, no lesi on, no lumps, no rash. NEUROLOGICAL/PSYCH: No anxiety, not depressed, no emotional problem, no headache, no numbness, no pre-existing deficit, no history of seizures, no tremors, no weakness. HEMATOLOGIC/LYMPHATIC: Not anemic, no history of blood clots, no apparent bleeding, no bruising, glands not swollen. All Systems Negative, Except as Noted. Physical Exam Physical Exam Dictation VITAL SIGNS: Reviewed. GENERAL APPEARANCE: Alert, oriented x3, no acute distress, obese. HEAD AND FACE: Non-traumatic. EYES: PERRL, pink conjunctivas, eyelid no trauma, anterior chamber clear. EARS: Pinnas intact and no signs of trauma or erythema. Ear canals clear and no discharge. TMs no erythema. NOSE: No discharge, no bleeding. OROPHARYNX: Mouth normal, teeth no caries, tongue pink. Pharynx clear, no erythema. Tonsils no exudates, no abscesses noted. Mucous membrane moist. NECK: Supple, non-tender, no thyromegaly, no masses, no JVD, no bruits. BREAST: Deferred. CHEST: No tenderness, no crepitus, no paradoxical movement, no retractions. LUNGS: Clear, well-ventilated, symmetric, no rales, no wheezing, no rhonchi, no stridor, good breath sounds bilaterally. HEART: Regular rate, regular rhythm, no murmur, no gallops. VASCULAR: No peripheral edema. ABDOMEN: Soft, positive bowel sounds, nondistended, no guarding, suprapubic tender, no rebound, no masses no hepatomegaly, no splenomegaly, no Fernandes's sign, no hernias. RECTAL: Deferred. GENITAL: Deferred. NEUROLOGICAL: Normal speech, gross motor function intact, gross sensory function intact. MUSCULOSKELETAL: Neck nontender, full range of motion, back nontender, full range of motion. EXTREMITIES: Nontender, full range of motion. SKIN: Color pink, dry, no turgor, no rash, no lacerations, no abrasions, no contusions. LYMPHATICS: Deferred. Results Laboratory and Microbiology Labs Reviewed?: Yes MDM MDM: Differential diagnosis: Urine retention, abdominal discomfort Rationale: Tests considered and ordered secondary to shared decision making include: Previous outside records reviewed: Old ER visits. Risk of complication and/or morbidity or mortality of patient management: None Medications-Per medication reconciliation Need for hospitalization: Patient does not meet criteria for hospitalization. Patient is a 79-year-old male coming in to be evaluated for urine retention Abebe was exchanged urine output improved discomfort. Patient will be discharged in stable condition. ED Course Orders Procedure Category Date Status Time Nurse Driven Abebe ALMA 10/10/24 In Process Removal Pro 06:35 Vital Signs Date Time Temp Pulse Resp B/P (MAP) Pulse Ox O2 Delivery O2 Flow Rate FiO2 10/10/24 06:14 97.3 91 19 158/87 95 Room Air 0 DX & DISP Disposition: Discharge Departure Impression: Primary Impression: Chronic indwelling Abebe catheter Additional Impression: Obstructed Abebe catheter Condition: Stable Additional Instructions: FOLLOW-UP WITH PRIMARY CARE PROVIDER IN 1 TO 2 DAYS. TAKE MEDICATIONS DIRECTED HERE IN THE EMERGENCY ROOM. OKAY TO CONTINUE HOME MEDICATIONS UNLESS OTHERWISE DISCUSSED DURING YOUR VISIT IN THE EMERGENCY ROOM TODAY. RETURN TO YOUR NEAREST EMERGENCY ROOM IF SYMPTOMS WORSEN OR IF THERE IS NO IMPROVEMENT. CALL 911 IF YOU NEED IMMEDIATE ASSISTANCE. TAKE TYLENOL [id number] NEEDED AND IF NO CONTRAINDICATIONS ARE PRESENT. INCREASE ORAL HYDRATION. A WOUND CULTURE OR URINE CULTURE WAS ORDERED HERE IN THE EMERGENCY ROOM DEPARTMENT PLEASE FOLLOW-UP WITH PRIMARY CARE PROVIDER AND ADVISE THEM TO GET REPORTS FROM OUR FACILITY. IF YOU HAD ANY RITESH WRAP/SPLINTS THAT WERE APPLIED HERE, PLEASE DO NOT REMOVE THEM UNTIL YOU SEE YOUR PRIMARY CARE OR SPECIALTY. Referrals: Referrals: BERTO HAM MD (PCP) NICK ALANIZ MD Time of Disposition: 07:29 JERALD SHERIFF MD Oct 10, 2024 07:29
[2024-10-10 07:36] VITALS: BP 140/80; PULSE 83; RESP 18; TEMP 98.1; O2SAT 97
--- NOTE | 2024-10-10 08:39 | NUR ---
DC PATIENT WAS DC'D BY BLELA ALVARADO LVN CHANGED OUT ABEBE CATHETER, I PROVIDED PATIENT WITH EXTRA ABEBE LEG BAG AND PROVIDED INFO BASED ON DIAGNOSIS, PATIENT AMBULATED OUT OF ED, NO COMPLICATIONS
== END 2024-10-10 09:08 | disposition home or self-care (01) ==
LOC: EDH 06:12
DX: T83.098A Other mechanical complication of other urinary catheter, initial encounter (principal); E11.9 Type 2 diabetes mellitus without complications; Z79.01 Long term (current) use of anticoagulants; Z95.1 Presence of aortocoronary bypass graft; Y84.6 Urinary catheterization as the cause of abnormal reaction of the patient, or of later complication, without mention of misadventure at the time of the procedure
CPT/HCPCS: 51702; 99284

== ENCOUNTER 2024-11-27 22:46 | Emergency (ER) | payer MEDICARE, MEDICAID ==
[~2024-11-27] VITALS: Ht 162.6 cm; Wt 73.0 kg
--- NOTE | 2024-11-27 23:20 | NUR ---
16 FR ABEBE PRESENT ENGINE SPECIALIST, PATIENT REPORED ABEBE WAS EXCHANGED TODAY, MIDLEVEL MADE AWARE.
[2024-11-27 23:29] LABS: IMMATURE GRANULOCYTE ABSOLUTE 0.03 K/uL (0-1); NUCLEATED RED BLOOD CELLS 0.0 % (0.0-0.19); PLATELET COUNT (AUTO) 178 K/uL (130-400); RED BLOOD CELL COUNT(AUTO) 4.00 MIL/uL (4.50-6.20); RED CELL DISTRIBUTION WIDTH 15.1 % (11.0-15.5); WHITE BLOOD COUNT (AUTO) 8.5 K/uL (4.8-10.8)
[2024-11-27 23:49] LABS: CREATININE 1.2 mg/dL (0.5-1.3); GLOMERULAR FILTR. RATE CALC 62.0 mL/min (>90); GLUCOSE,RANDOM 197.0 mg/dL (70-105); SODIUM SERUM 143.0 mmol/L (136-145); UREA NITROGEN, BLOOD 30.0 mg/dL (7-18)
[2024-11-27 23:50] LABS: ADD UA MICROSCOPIC YES; APPEARANCE,URINE TURBID (CLEAR); GLUCOSE, URINE (UA) 200 mg/dL (NEGATIVE); LEUKOCYTE ESTERASE ,URINE 500 Leu/uL (NEGATIVE); NITRATE,URINE NEGATIVE (NEGATIVE); OCCULT BLOOD,URINE LARGE (NEGATIVE)
[2024-11-27 23:53] LABS: NON-SQUAMOUS EPITHELIAL CELL 2 /HPF (0-2); WBC CLUMP MANY /HPF (0-1)
--- NOTE | 2024-11-28 00:29 | ERN ---
ED Note History of Present Illness Stated Complaint: C/O BLOOD IN URINE; CATHETER IN PLACE Chief Complaint: Blood in Urine: Time Seen by MD: 22:49 Time Seen by Midlevel: 22:49 Dictation: The patient is a 79-year-old male with a history of diabetes, hypertension, chronic Abebe who presents to the emergency department with complaints of hematuria and burning urination. Patient reports he had his Abebe catheter changed today. Patient otherwise denies any flank pain, denies any lower abdominal pain, denies any fevers, denies any use of blood thinners. Allergies: Coded Allergies: No Known Drug Allergies (Verified Allergy, Unknown, 08/29/17) Home Meds Active Scripts Sulfamethoxazole/Trimethoprim (Bactrim Ds Tablet) 800 Mg-160 Mg Tablet, 1 TAB PO BID for 10 Days, #20 TAB 0 Refills Prov:JERALD SHERIFF MD 04/26/24 Cephalexin Monohydrate (Keflex) 500 Mg Cap, 1 CAP PO TID for 10 Days, #30 CAP 0 Refills Prov:JERALD SHERIFF MD 04/26/24 Sulfamethoxazole/Trimethoprim (Bactrim Ds Tablet) 800 Mg-160 Mg Tablet, 1 TAB PO BID for 7 Days, #14 TAB 0 Refills Prov:ALISA PÉREZ NP 03/16/24 Reported Medications Rivaroxaban (Xarelto) 20 Mg Tablet, 20 MG PO DAILY, TAB 02/16/18 Past Medical History Past Medical History: Diabetes-Type II, Hypertension Additional Past Medical Hx: ABEBE CATHETER Surgical History: Unknown Family History: CAD, DM, HTN Social History: ETOH, Lives with family RN Note Reviewed/Agreed w/PFSH: Yes Review of System Dictation Constitutional: Negative for fever,chills, and weight loss Eyes: Negative for injury, pain,redness, and discharge ENT: Negative for injury,pain or swelling Cardiovascular: Negative for chest pain, palpitations, and edema Respiratory: Negative for shortness of breath, cough, and wheezing, Abdomen/GI: Negative for abdominal pain, nausea, vomiting, diarrhea, and constipation Back: Negative for injury and pain : Positive for painful urination, hematuria MS/Extremity: Negative for injury and deformity Skin: Negative for rash, and discoloration Neuro: Negative for headache, weakness, numbness, tingling, and seizure Psych: Negative for suicide ideation, homicidal ideation, and hallucinations Initial Vital Sign VS Vital Signs Date Time Temp Pulse Resp B/P (MAP) Pulse Ox O2 Delivery O2 Flow Rate FiO2 11/27/24 22:50 98.2 96 20 168/90 95 Room Air 11/28/24 00:37 0 21 Physical Exam Dictation Vital Signs reviewed General Appearance: Alert, oriented x 3, no acute distress, well developed, nourished. Head and Face: non-traumatic. Eyes: PERRL, pink conjunctivas, eyelid no trauma, anterior chamber with arcus senilis. Ears: Pinnas intact and no signs of trauma or erythema ear canals clear and no discharge TM no erythema Nose: No discharge, no bleeding. Oropharynx: Mouth normal, tongue pink. pharynx clear,no erythema, tonsils no exudates, no abscesses noted, mucous membrane moist Neck: Supple, non-tender, no thyromegaly, no masses, no JVD, no bruits Breast:Deferred Chest:No tenderness, no crepitus, no paradoxical movement, no retractions Lungs:Clear, well-ventilated, symmetric, no rales, no wheezing, no rhonchi, no stridor, good breath sounds bilaterally Heart: Regular rate, regular rhythm, no murmur, no gallops Vascular: no peripheral edema, Abdomen: Soft, positive bowel sounds, nondistended, no guarding, nontender, no rebound, no masses no hepatomegaly, no splenomegaly, no Efrnandes's sign, no hernias. Rectal: Deferred Genital: No edema or erythema, catheter Abebe in place with a mild hematuria, no clots Neurological: Normal speech, motor function intact, sensory function intact Musculoskeletal: Neck nontender, full range of motion, back nontender, full range of motion, Extremities: nontender, full range of motion Skin: Color pink, dry, no turgor, no rash, no lacerations, no abrasions, no contusions. Lymphatic: Deferred Results (Laboratory/Radiology) Laboratory/Radiology Laboratory Tests Test 11/27/24 23:22 11/27/24 23:42 White Blood Count 8.5 K/uL (4.8-10.8) Red Blood Count 4.00 MIL/uL (4.50-6.20) L Hemoglobin 11.9 g/dL (14.0-18.0) L Hematocrit 35.9 % (42-54) L Mean Corpuscular Volume 89.8 fL (79-99) Mean Corpuscular Hemoglobin 29.8 pg (27.0-33.0) Mean Corpuscular Hemoglobin Concent 33.1 g/dL (32.0-36.0) Red Cell Distribution Width 15.1 % (11.0-15.5) Platelet Count 178 K/uL (130-400) Mean Platelet Volume 10.1 fL (7.5-10.5) Immature Granulocyte % (Auto) 0.4 % (0-1) Neutrophils (%) (Auto) 81.0 % (40.0-77.0) H Lymphocytes (%) (Auto) 9.4 % (21.0-51.0) L Monocytes (%) (Auto) 6.5 % (3.0-13.0) Eosinophils (%) (Auto) 2.5 % (0.0-8.0) Basophils (%) (Auto) 0.2 % (0.0-5.0) Neutrophils # (Auto) 6.9 K/uL (1.8-7.7) Lymphocytes # (Auto) 0.8 K/uL (1.0-4.8) L Monocytes # (Auto) 0.6 K/uL (0.1-1.0) Eosinophils # (Auto) 0.21 K/uL (0.00-0.70) Basophils # (Auto) 0.02 K/uL (0.00-0.20) Absolute Immature Granulocyte (auto 0.03 K/uL (0-1) Nucleated Red Blood Cells 0.0 % (0.0-0.19) White Cell Morphology Comment See comments Sodium Level 143 mmol/L (136-145) Potassium Level 4.2 mmol/L (3.5-5.1) Chloride Level 107 mmol/L (101-111) Carbon Dioxide Level 27 mmol/L (21-32) Blood Urea Nitrogen 30 mg/dL (7-18) H Creatinine 1.2 mg/dL (0.5-1.3) Glomerular Filtration Rate Calc 62 mL/min (>90) Random Glucose 197 mg/dL (70-105) H Total Calcium 8.3 mg/dL (8.5-10.1) L Urine Color BROWN (YELLOW) Urine Appearance TURBID (CLEAR) Urine pH 7.0 (5.0-8.0) Urine Specific [place] 1.017 (1.001-1.031) Urine Protein 200 mg/dL (NEGATIVE) H Urine Glucose (UA) 200 mg/dL (NEGATIVE) H Urine Ketones NEGATIVE mg/dL (NEGATIVE) Urine Occult Blood LARGE (NEGATIVE) H Urine Nitrate NEGATIVE (NEGATIVE) Urine Bilirubin NEGATIVE mg/dL (NEGATIVE) Urine Urobilinogen 0.2 mg/dL (0.2-1.0) Urine Leukocyte Esterase 500 Karlie/uL (NEGATIVE) H Urine RBC TNTC /HPF (0-1) H Urine WBC TNTC /HPF (0-1) H Urine WBC Clumps (Auto) MANY /HPF (0-1) Urine Non-Squamous Epithelial Cells 2 /HPF (0-2) Urine Bacteria None /HPF (None Seen) Labs Reviewed?: Yes ED Course ED Course Orders Procedure Category Date Status Time Cbc With Differential LAB 11/27/24 Complete 23:10 Urinalysis Profile LAB 11/27/24 Complete 23:10 Basic Metabolic Panel LAB 11/27/24 Complete 23:10 Culture Urine IVET 11/27/24 In Process 23:50 Ceftriaxone 1g Vial PHA 11/28/24 Complete (Rocephine 1g Inj) 00:30 Acetaminophen 500mg PHA 11/28/24 Complete Tab (Tylenol 500mg T 00:30 Current Medications Medications (Trade) Dose Ordered Sig/Niko Route PRN Reason Start Time Stop Time Status Last Admin Dose Admin Acetaminophen (TYLenol 500MG TAB) 1,000 mg ONCE ONCE PO 11/28/24 00:30 11/28/24 00:31 DC 11/28/24 00:23 Ceftriaxone Sodium (ROCEphine 1G INJ) 1 gm ONCE ONCE IVPB 11/28/24 00:30 11/28/24 00:31 DC 11/28/24 00:24 Vital Signs Date Time Temp Pulse Resp B/P (MAP) Pulse Ox O2 Delivery O2 Flow Rate FiO2 11/28/24 00:37 98.6 90 18 146/79 98 Room Air* 0 21 11/27/24 22:50 98.2 96 20 168/90 95 Room Air Medical Decision Making MDM The patient is a 79-year-old male with a history of diabetes, hypertension, chronic Abebe who presents to the emergency department with complaints of hematuria and burning urination. Patient reports he had his Abebe catheter changed today. Patient otherwise denies any flank pain, denies any lower abdominal pain, denies any fevers, denies any use of blood thinners. CBC showed no leukocytosis, mild normocytic anemia, chemistry showed creatinine of 1.2 Which is around patient's baseline. Mild hyperglycemia. Urinalysis positive for leukocyte esterase. Patient with hematuria but no clots. No urinary retention. Patient did have a Abebe exchange today so hematuria could be related to the Abebe catheter insertion. Patient otherwise with no flank pain. Discussed laboratory findings with the patient and suggested admission to the hospital but at this time patient would like to go home and be treated as outpatient. Reports he has an appointment tomorrow with the his PCP. Patient agrees to return if he develops any abdominal pain, back pain, fevers or worsening hematuria. Discharge planning discussed with the patient and patient's . On physical exam patient is in no acute distress, nontoxic appearance, stable vital signs. Patient with no leukocytosis, no fevers. We will discharge patient on antibiotics and instructed to follow up with Urology. Differential diagnosis: UTI, urinary retention, sepsis Need for hospitalization: Patient does not meet criteria for hospitalization. There are no social concerns with this patient. DX & DISP Disposition: Discharge Departure Impression: Primary Impression: Urinary tract infection with hematuria Additional Impression: Chronic indwelling Abebe catheter Condition: Stable Scripts Sulfamethoxazole/Trimethoprim (Bactrim Ds Tablet) 800 Mg-160 Mg Tablet 1 TAB PO BID for 7 Days, #14 TAB 0 Refills Prov: CRISTINE KAY [facility] 11/28/24 Additional Instructions: Your labs showed you have a urinary tract infection. Take your antibiotics as prescribed. Follow up with your primary doctor and follow up on urine culture. If you develop worsening blood in urine, fevers, abdominal pain or back pain or if anything worsens please return to ER. FOLLOW-UP WITH PRIMARY CARE PROVIDER IN 1 TO 2 DAYS. TAKE MEDICATIONS DIRECTED HERE IN THE EMERGENCY ROOM. OKAY TO CONTINUE HOME MEDICATIONS UNLESS OTHERWISE DISCUSSED DURING YOUR VISIT IN THE EMERGENCY ROOM TODAY. RETURN TO YOUR NEAREST EMERGENCY ROOM IF SYMPTOMS WORSEN OR IF THERE IS NO IMPROVEMENT. CALL 911 IF YOU NEED IMMEDIATE ASSISTANCE. TAKE TYLENOL [id number] NEEDED AND IF NO CONTRAINDICATIONS ARE PRESENT. INCREASE ORAL HYDRATION. A WOUND CULTURE OR URINE CULTURE WAS ORDERED HERE IN THE EMERGENCY ROOM DEPARTMENT PLEASE FOLLOW-UP WITH PRIMARY CARE PROVIDER AND ADVISE THEM TO GET REPEAT PORTS FROM OUR FACILITY. IF YOU HAD ANY RITESH WRAP/SPLINTS THAT WERE APPLIED HERE, PLEASE DO NOT REMOVE THEM UNTIL YOU SEE YOUR PRIMARY CARE OR SPECIALTY. Referrals: BERTO HAM MD (PCP) NICK ALANIZ MD Time of Disposition: 00:44 I have reviewed the case, and I agree with, Diagnosis and Plan CRISTINE KAY [facility] Nov 28, 2024 00:29
[2024-11-28] MEDS ORDERED: SULF1TAB42 PO (00:46)
[2024-11-28 01:23] VITALS: BP 140/69; PULSE 85; RESP 18; TEMP 98.2; O2SAT 96
== END 2024-11-28 01:24 | disposition home or self-care (01) ==
LOC: EDH 22:46
DX: N39.0 Urinary tract infection, site not specified (principal); E11.9 Type 2 diabetes mellitus without complications; I10 Essential (primary) hypertension; Z79.01 Long term (current) use of anticoagulants
CPT/HCPCS: 99284; 80048; 85025; 87086; 81001; 36415; 96365; J0696

== ENCOUNTER 2025-03-10 09:09 | Emergency (ER) | payer MEDICARE, MEDICAID ==
[~2025-03-10] VITALS: Ht 162.6 cm; Wt 70.3 kg
--- NOTE | 2025-03-10 09:14 | ERN ---
General Chief Complaint: Urinary Catheter Problems Stated Complaint: UNABLE TO URINATE Time Seen by MD: 09:11 Source: patient History of Present Illness Initial Comments Patient is a 80-year-old male coming in complaining of an area. Per patient he has a Abebe in place which was placed one on week ago. Per patient last night he states that he could not urinate anymore. Allergies: Coded Allergies: No Known Drug Allergies (Verified Allergy, Unknown, 08/29/17) Home Meds Active Scripts Sulfamethoxazole/Trimethoprim (Bactrim Ds Tablet) 800 Mg-160 Mg Tablet, 1 TAB PO BID for 7 Days, #14 TAB 0 Refills Prov:CRISTINE KAY [employer] 11/28/24 Sulfamethoxazole/Trimethoprim (Bactrim Ds Tablet) 800 Mg-160 Mg Tablet, 1 TAB PO BID for 10 Days, #20 TAB 0 Refills Prov:JERALD SHERIFF MD 04/26/24 Cephalexin Monohydrate (Keflex) 500 Mg Cap, 1 CAP PO TID for 10 Days, #30 CAP 0 Refills Prov:JERALD SHERIFF MD 04/26/24 Sulfamethoxazole/Trimethoprim (Bactrim Ds Tablet) 800 Mg-160 Mg Tablet, 1 TAB PO BID for 7 Days, #14 TAB 0 Refills Prov:ALISA PÉREZ CNP 03/16/24 Reported Medications Rivaroxaban (Xarelto) 20 Mg Tablet, 20 MG PO DAILY, TAB 02/16/18 Past Medical History Past Medical History: Diabetes-Type II, Hypertension Medical History Other: ABEBE CATHETER Past Surgical History: Unknown Family History Family History: CAD, DM, HTN Social History Social History: ETOH, Lives with family ROS Dictation CONSTITUTIONAL: No chills, no fever, no weakness, no diaphoresis, no malaise. HEAD/FACE: No signs of trauma. EENT: No eye pain, no blurred vision, no tearing, no double vision, no ear pain, no ear discharge, no nose pain, no nasal congestion, no throat pain, no throat swelling, no mouth pain. RESPIRATORY: No cough, no orthopnea, no SOB, no stridor, no wheezing. CARDIOVASCULAR: No chest pain, no edema, no palpitations, no syncope. GASTROINTESTINAL/ABDOMINAL: No abdominal pain, no constipation, no diarrhea, no nausea, no vomiting. GENITOURINARY: No abnormal discharge, no dysuria, no frequent urination, no hematuria. No complaints of pain in the genitals. MUSCULOSKELETAL: No back pain, no gout, no joint pain, no joint swelling, no muscle pain, no muscle stiffness, no neck pain. INTEGUMENTARY: No change in color, no change in hair/nails, no dryness, no lesion, no lumps, no rash. NEUROLOGICAL/PSYCH: No anxiety, not depressed, no emotional problem, no head ache, no numbness, no pre-existing deficit, no history of seizures, no tremors, no weakness. HEMATOLOGIC/LYMPHATIC: Not anemic, no history of blood clots, no apparent bleeding, no bruising, glands not swollen. Review of All Systems Negative, Except as Noted. Physical Exam Physical Exam Dictation VITAL SIGNS: Reviewed. GENERAL APPEARANCE: Alert, oriented x3, no acute distress, obese. HEAD AND FACE: Non-traumatic. EYES: PERRL, pink conjunctivas, eyelid no trauma, anterior chamber clear. EARS: Pinnas intact and no signs of trauma or erythema. Ear canals clear and no discharge. TMs no erythema. NOSE: No discharge, no bleeding. OROPHARYNX: Mouth normal, teeth no caries, tongue pink. Pharynx clear, no erythema. Tonsils no exudates, no abscesses noted. Mucous membrane moist. NECK: Supple, non-tender, no thyromegaly, no masses, no JVD, no bruits. BREAST: Deferred. CHEST: No tenderness, no crepitus, no paradoxical movement, no retractions. LUNGS: Clear, well-ventilated, symmetric, no rales, no wheezing, no rhonchi, no stridor, good breath sounds bilaterally. HEART: Regular rate, regular rhythm, no murmur, no gallops. VASCULAR: No peripheral edema. ABDOMEN: Soft, positive bowel sounds, nondistended, no guarding, nontender, no rebound, no masses no hepatomegaly, no splenomegaly, no Fernandes's sign, no hernias. RECTAL: Deferred. GENITAL: Deferred. NEUROLOGICAL: Normal speech, gross motor function intact, gross sensory function intact. MUSCULOSKELETAL: Neck nontender, full range of motion, back nontender, full range of motion. EXTREMITIES: Nontender, full range of motion. SKIN: Color pink, dry, no turgor, no rash, no lacerations, no abrasions, no contusions. LYMPHATICS: Deferred. Results Laboratory and Microbiology Labs Reviewed?: Yes MDM MDM: Differential diagnosis: Abebe catheter malfunction, Abebe catheter exchange Rationale: Tests considered and ordered secondary to shared decision making include: Previous outside records reviewed: Old ER visits. Risk of complication and/or morbidity or mortality of patient management: None Medications-Per medication reconciliation Need for hospitalization: Patient does not meet criteria for hospitalization. Need for emergency major/minor surgery: No There are no social concerns with this patient. Patient is a 80-year-old male coming in complaining of Abebe catheter malfunction. Abebe catheter was replaced symptoms improved. Patient will be discharged in stable condition. ED Course Orders Procedure Category Date Status Time *Nursing CPOE 03/10/25 Transmitted Communication: 09:40 Bladder Scan CPOE 03/10/25 Transmitted 09:40 Vital Signs Date Time Temp Pulse Resp B/P (MAP) Pulse Ox O2 Delivery O2 Flow Rate FiO2 03/10/25 09:45 98.1 84 16 158/78 95 Room Air* 0 21 03/10/25 09:10 98.4 83 18 154/87 95 DX & DISP Disposition: Discharge Departure Impression: Primary Impression: Chronic indwelling Abebe catheter Additional Impression: Malfunction of Abebe catheter Condition: Stable Scripts Cephalexin Monohydrate (Keflex) 500 Mg Cap 1 CAP PO TID for 10 Days, #30 CAP 0 Refills Prov: JERALD SHERIFF MD 03/10/25 Additional Instructions: FOLLOW-UP WITH PRIMARY CARE PROVIDER IN 1 TO 2 DAYS. TAKE MEDICATIONS DIRECTED HERE IN THE EMERGENCY ROOM. OKAY TO CONTINUE HOME MEDICATIONS UNLESS OTHERWISE DISCUSSED DURING YOUR VISIT IN THE EMERGENCY ROOM TODAY. RETURN TO Y OUR NEAREST EMERGENCY ROOM IF SYMPTOMS WORSEN OR IF THERE IS NO IMPROVEMENT. CALL 911 IF YOU NEED IMMEDIATE ASSISTANCE. TAKE TYLENOL [id number] NEEDED AND IF NO CONTRAINDICATIONS ARE PRESENT. INCREASE ORAL HYDRATION. A WOUND CULTURE OR URINE CULTURE WAS ORDERED HERE IN THE EMERGENCY ROOM DEPARTMENT PLEASE FOLLOW-UP WITH PRIMARY CARE PROVIDER AND ADVISE THEM TO GET REPORTS FROM OUR FACILITY. IF YOU HAD ANY RITESH WRAP/SPLINTS THAT WERE APPLIED HERE, PLEASE DO NOT REMOVE THEM UNTIL YOU SEE YOUR PRIMARY CARE OR SPECIALTY. Referrals: Referrals: BERTO HAM MD (PCP) Time of Disposition: 11:02 JERALD SHERIFF MD Mar 10, 2025 09:14
--- NOTE | 2025-03-10 11:53 | NUR ---
Patient was retaining 357 cc of urine after bladder scan i switched out allen ctaheter and applied a 16 georgian allen, patient tolerated well and i got out cloudy yellow urine of 1000cc, patient felt relieved after, i dc'd patient as per dr jane i explained for patient to follow up with pcp, proided info based on diagnosis, prescriptions and answered any follow up questions patient ambulated out of ed, no complications
[2025-03-10 11:54] VITALS: BP 116/60; PULSE 72; RESP 15; TEMP 98.5; O2SAT 95
== END 2025-03-10 11:45 | disposition home or self-care (01) ==
LOC: EDH 09:09
DX: T83.091A Other mechanical complication of indwelling urethral catheter, initial encounter (principal); E11.9 Type 2 diabetes mellitus without complications; I10 Essential (primary) hypertension; Z79.01 Long term (current) use of anticoagulants; Y84.6 Urinary catheterization as the cause of abnormal reaction of the patient, or of later complication, without mention of misadventure at the time of the procedure
CPT/HCPCS: 51702; 99284

== ENCOUNTER 2025-04-07 15:17 | Emergency (ER) | payer MEDICARE, MEDICAID ==
[~2025-04-07] VITALS: Ht 162.6 cm; Wt 68.0 kg
[2025-04-07 16:45] VITALS: BP 146/74; PULSE 82; RESP 16; TEMP 97.9; O2SAT 97
--- NOTE | 2025-04-07 16:58 | NUR ---
PER ER MD, THE PATINET'S 16FR ABEBE WAS REMOVED. PATIENT TOLERATED PROCEDURE. A 16FR ABEBE WAS THEN PLACED. SEDIMENT AND 300ML URINE WAS NOTED IN ABEBE BAG. THE PATIENT REPORTED IMMEDIATE RELEIF OF SYMPTOMS AND URINARY URGE. THE BAG WAS THEN REPLACED WITH A LEG BAG. THE PATIENT WAS PROVIDED WITH INSTRUCTIONS ON ABEBE AND LEG BAG CARE AND VERBALIZED UNDERSTANDING.
[2025-04-07] MEDS ORDERED: SULF1TAB42 PO (17:02)
--- NOTE | 2025-04-07 17:03 | ERN ---
General Chief Complaint: Urinary Catheter Problems Stated Complaint: UNABLE TO URINATE Time Seen by MD: 15:30 History of Present Illness Initial Comments 80-year-old male came in for Abebe complication. Patient otherwise has no concerns. Allergies: Coded Allergies: No Known Drug Allergies (Verified Allergy, Unknown, 08/29/17) Home Meds Active Scripts Cephalexin Monohydrate (Keflex) 500 Mg Cap, 1 CAP PO TID for 10 Days, #30 CAP 0 Refills Prov:JERALD SHERIFF MD 03/10/25 Sulfamethoxazole/Trimethoprim (Bactrim Ds Tablet) 800 Mg-160 Mg Tablet, 1 TAB PO BID for 7 Days, #14 TAB 0 Refills Prov:CRISTINE KAY 11/28/24 Sulfamethoxazole/Trimethoprim (Bactrim Ds Tablet) 800 Mg-160 Mg Tablet, 1 TAB PO BID for 10 Days, #20 TAB 0 Refills Prov:JERALD SHERIFF MD 04/26/24 Cephalexin Monohydrate (Keflex) 500 Mg Cap, 1 CAP PO TID for 10 Days, #30 CAP 0 Refills Prov:JERALD SHERIFF MD 04/26/24 Sulfamethoxazole/Trimethoprim (Bactrim Ds Tablet) 800 Mg-160 Mg Tablet, 1 TAB PO BID for 7 Days, #14 TAB 0 Refills Prov:ALISA PÉREZ CNP 03/16/24 Reported Medications Rivaroxaban (Xarelto) 20 Mg Tablet, 20 MG PO DAILY, TAB 02/16/18 Past Medical History Past Medical History: Diabetes-Type II, Hypertension Medical History Other: ABEBE CATHETER Past Surgical History: Unknown Family History Family History: CAD, DM, HTN Social History Social History: ETOH, Lives with family ROS Dictation Abebe complication Physical Exam General Appearance: (+) no apparent distress Orientation: (+) alert, (+) oriented x 3 Respiratory: (+) chest non-tender, (+) lungs clear Heart: (+) regular, (+) no gallop Vascular: (+) no edema, (+) normal peripheral pulse Gastrointestinal: (+) soft, (+) non-tender, (+) no organomegaly, (+) bowel sound present Extremities: (+) normal range of motion MDM MDM: Differential diagnosis: Rationale: Tests considered and ordered secondary to shared decision making include: Previous outside records reviewed: Old ER visits. Risk of complication and/or morbidity or mortality of patient management: None Medications-Per medication reconciliation Need for hospitalization: Patient does not meet criteria for hospitalization. Need for emergency major/minor surgery: No There are no social concerns with this patient. Prescription drug management Prescriptions will include symptomatic care Patient's prior external medical records from other ER visits were reviewed by me as indicated. Prior testing and results from previous visits were reviewed. Prior tests were taken into account with medical decision making and resource utilization, independent historian/historians were used to obtain complete medical history. I independently interpreted the test that were performed, results were reviewed by me and considered findings on radiology if ordered. Medical management and examination interpretation discussions were had by me with other qualified healthcare professionals as indicated for the patient's care. ED Course Orders Procedure Category Date Status Time Nurse Driven Abebe ALMA 04/07/25 In Process Removal Pro 16:43 Vital Signs Date Time Temp Pulse Resp B/P (MAP) Pulse Ox O2 Delivery O2 Flow Rate FiO2 04/07/25 15:18 98.4 76 18 150/84 97 Room Air DX & DISP Disposition: Discharge Departure Impression: Primary Impression: Chronic indwelling Abebe catheter Additional Impression: Malfunction of Abebe catheter Condition: Stable Scripts Sulfamethoxazole/Trimethoprim (Bactrim Ds Tablet) 800 Mg-160 Mg Tablet 1 TAB PO BID for 7 Days, #14 TAB 0 Refills Prov: HILARIO ABDI MD 04/07/25 Referrals: BERTO HAM MD (PCP) HILARIO ABDI MD Apr 07, 2025 17:03
[2025-04-07] MEDS: cefTRIAXone 1G VIAL 1 GM ONE (17:18)
== END 2025-04-07 17:30 | disposition home or self-care (01) ==
LOC: EDH 15:17
DX: T83.098A Other mechanical complication of other urinary catheter, initial encounter (principal); E11.9 Type 2 diabetes mellitus without complications; I10 Essential (primary) hypertension; Z79.01 Long term (current) use of anticoagulants; Y73.8 Miscellaneous gastroenterology and urology devices associated with adverse incidents, not elsewhere classified; Y84.6 Urinary catheterization as the cause of abnormal reaction of the patient, or of later complication, without mention of misadventure at the time of the procedure; Y92.89 Other specified places as the place of occurrence of the external cause
CPT/HCPCS: 99284; 51702; 96372; J0696

== ENCOUNTER 2025-04-15 07:02 | Emergency (ER) | payer MEDICARE, MEDICAID ==
[~2025-04-15] VITALS: Ht 162.6 cm; Wt 73.5 kg
[2025-04-15] MEDS: LIDOCAINE HCL 1% 20 ML VIAL ONE (07:53)
[2025-04-15 08:16] VITALS: BP 148/78; PULSE 86; RESP 19; TEMP 97.3; O2SAT 99
[2025-04-15 08:26] LABS: APPEARANCE,URINE CLOUDY (CLEAR); GLUCOSE, URINE (UA) NEGATIVE (NEGATIVE); LEUKOCYTE ESTERASE ,URINE 25 Leu/uL (NEGATIVE); NITRATE,URINE NEGATIVE (NEGATIVE); OCCULT BLOOD,URINE MODERATE (NEGATIVE)
[2025-04-15 08:28] LABS: SQUAMOUS EPITHELIAL CELL,UR RARE /HPF (0-2)
--- NOTE | 2025-04-15 08:32 | ERN ---
General Chief Complaint: Urinary Retention Stated Complaint: URINARY RETENTION Time Seen by MD: 07:07 History of Present Illness Initial Comments 80-year-old male came in for urinary retention. Patient has a Suazo it is having difficult time draining. Patient otherwise has no concerns. Allergies: Coded Allergies: No Known Drug Allergies (Verified Allergy, Unknown, 08/29/17) Home Meds Active Scripts Sulfamethoxazole/Trimethoprim (Bactrim Ds Tablet) 800 Mg-160 Mg Tablet, 1 TAB PO BID for 7 Days, #14 TAB 0 Refills Prov:HILARIO ABDI MD 04/07/25 Cephalexin Monohydrate (Keflex) 500 Mg Cap, 1 CAP PO TID for 10 Days, #30 CAP 0 Refills Prov:JERALD SHERIFF MD 03/10/25 Sulfamethoxazole/Trimethoprim (Bactrim Ds Tablet) 800 Mg-160 Mg Tablet, 1 TAB PO BID for 7 Days, #14 TAB 0 Refills Prov:CRISTINE KAY 11/28/24 Sulfamethoxazole/Trimethoprim (Bactrim Ds Tablet) 800 Mg-160 Mg Tablet, 1 TAB PO BID for 10 Days, #20 TAB 0 Refills Prov:JERALD SHERIFF MD 04/26/24 Cephalexin Monohydrate (Keflex) 500 Mg Cap, 1 CAP PO TID for 10 Days, #30 CAP 0 Refills Prov:JERALD SHERIFF MD 04/26/24 Sulfamethoxazole/Trimethoprim (Bactrim Ds Tablet) 800 Mg-160 Mg Tablet, 1 TAB PO BID for 7 Days, #14 TAB 0 Refills Prov:ALISA PÉREZ CNP 03/16/24 Reported Medications Rivaroxaban (Xarelto) 20 Mg Tablet, 20 MG PO DAILY, TAB 02/16/18 Past Medical History Past Medical History: Diabetes-Type II, High Cholesterol, Heart Disease, Hypertension Medical History Other: PROSTATE PROBLEMS Past Surgical History: CABG Family History Family History: CAD, DM, HTN Social History Social History: ETOH, Lives with family ROS Dictation Urinary retention Physical Exam General Appearance: (+) no apparent distress, (+) apparent distress Orientation: (+) alert, (+) oriented x 3 Respiratory: (+) chest non-tender, (+) lungs clear Heart: (+) regular, (+) no gallop Gastrointestinal: (+) soft, (+) non-tender, (+) no organomegaly, (+) bowel sound present Results Laboratory and Microbiology Lab and Micro Result Laboratory Tests Test 04/15/25 08:00 Urine Color LIGHT-YELLOW (YELLOW) Urine Appearance CLOUDY (CLEAR) H Urine pH 5.5 (5.0-8.0) Urine Specific Abie 1.018 (1.001-1.031) Urine Protein 20 mg/dL (NEGATIVE) H Urine Glucose (UA) NEGATIVE mg/dL (NEGATIVE) Urine Ketones NEGATIVE mg/dL (NEGATIVE) Urine Occult Blood MODERATE (NEGATIVE) H Urine Nitrate NEGATIVE (NEGATIVE) Urine Bilirubin NEGATIVE mg/dL (NEGATIVE) Urine Urobilinogen 0.2 mg/dL (0.2-1.0) Urine Leukocyte Esterase 25 Karlie/uL (NEGATIVE) H Urine RBC 6-10 /HPF (0-1) H Urine WBC 2-5 /HPF (0-1) H Urine Squamous Epithelial Cells RARE /HPF (0-2) Urine Uric Acid Crystals MOD /LPF (None Seen) Urine Bacteria None /HPF (None Seen) MDM MDM: Differential diagnosis: Rationale: Tests considered and ordered secondary to shared decision making include: Previous outside records reviewed: Old ER visits. Risk of complication and/or morbidity or mortality of patient management: None Medications-Per medication reconciliation Need for hospitalization: Patient does not meet criteria for hospitalization. Need for emergency major/minor surgery: No There are no social concerns with this patient. Prescription drug management Prescriptions will include symptomatic care Patient's prior external medical records from other ER visits were reviewed by me as indicated. Prior testing and results from previous visits were reviewed. Prior tests were taken into account with medical decision making and resource utilization, independent historian/historians were used to obtain complete medical history. I independently interpreted the test that were performed, results were reviewed by me and considered findings on radiology if ordered. Medical management and examination interpretation discussions were had by me with other qualified healthcare professionals as indicated for the patient's care. ED Course Orders Procedure Category Date Status Time Urinalysis LAB 04/15/25 Complete W/Microscopic 07:07 Nurse Driven Suazo ALMA 04/15/25 In Process Removal Pro 07:23 Ceftriaxone 1g Vial PHA 04/15/25 Complete (Rocephine 1g Inj) 07:30 Lidocaine Hcl 1% 20ml PHA 04/15/25 Complete Vial (Lidocaine Hc 07:51 Current Medications Medications (Trade) Dose Ordered Sig/Niko Route PRN Reason Start Time Stop Time Status Last Admin Dose Admin Ceftriaxone Sodium (ROCEphine 1G INJ) 1 gm ONCE ONCE IM 04/15/25 07:30 04/15/25 07:31 DC 04/15/25 07:53 Lidocaine HCl (Lidocaine HCl 1% 20ml Vial) 20 ml STK-MED ONCE .ROUTE 04/15/25 07:51 04/15/25 07:51 DC 04/15/25 07:53 Vital Signs Date Time Temp Pulse Resp B/P (MAP) Pulse Ox O2 Delivery O2 Flow Rate FiO2 04/15/25 08:16 97.3 86 19 148/78 99 Room Air* 0 21 04/15/25 07:05 97.5 92 16 154/83 96 Room Air 0 DX & DISP Disposition: Discharge Departure Impression: Primary Impression: Malfunction of Suazo catheter Condition: Stable Scripts Sulfamethoxazole/Trimethoprim (Bactrim Ds Tablet) 800 Mg-160 Mg Tablet 1 TAB PO BID for 5 Days, #10 TAB 0 Refills Prov: HILARIO ABDI MD 04/15/25 Referrals: BERTO HAM MD (PCP) HILARIO ABDI MD Apr 15, 2025 08:32
== END 2025-04-15 09:21 | disposition home or self-care (01) ==
LOC: EDH 07:02
DX: T83.091A Other mechanical complication of indwelling urethral catheter, initial encounter (principal); E11.9 Type 2 diabetes mellitus without complications; E78.00 Pure hypercholesterolemia, unspecified; I11.9 Hypertensive heart disease without heart failure; Z79.01 Long term (current) use of anticoagulants; Z95.1 Presence of aortocoronary bypass graft; Y84.6 Urinary catheterization as the cause of abnormal reaction of the patient, or of later complication, without mention of misadventure at the time of the procedure
CPT/HCPCS: 99283; 81001; 96372; J2003; J0696